=== PATIENT | female | born 1955 | race Caucasian/White ===

== ENCOUNTER 2017-02-21 20:12 | Inpatient (IN) | payer MEDICARE, BC ==
--- NOTE | ~2017-02-21 | CR72 ---
[facility] A Service of [facility] & [facility] RADIOLOGY TEXT RESULTS PATIENT: MIRNA WITT LOCATION: [place] [address] : 55 UNIT #: [id number] AGE: [address]: Andrew Stark MD SEX: F ORDER DR: [id number] [facility] [address] [facility]. [place], [place] [address] [id number] I MR#: [id number] Acc #: [id number] NAME: MIRNA WITT : 1955 SEX: F STUDY DATE/TIME: 02/23/2017 00:48 UNIT: [facility] ROOM: [facility] STUDY DESCRIPTION: CR Chest Single View Portable Attending Physician: Andrew Stark M.D. Ordering Physician: Blade Phillips M.D. Primary Care Physician: Kyle Carpenter M.D. MEDICAL IMAGING REPORT This report is preliminary unless electronic signature is present EXAM Portable chest 02/23/2017 at 0048 hours INDICATION Endotracheal tube and line placement. FINDINGS AP portable chest compared with 02/21/2017. The tip of an endotracheal tube is minimally below the thoracic inlet about 7-8 cm above the shanel. Consider advancing the tube 2-3 cm. Right IJ line is in the SVC. Heart size stable. There is some minimal atelectasis in the right base. No visible pneumothorax. Dictated by... Blade Nieves Jr., M.D. THIS IS AN ELECTRONICALLY VERIFIED REPORT Blade Nieves Jr., M.D. at 02/23/2017 11:15 AM TIP/alejandrina TD: 02/23/2017 08:05 JOB #: [id number] MEDICAL IMAGING REPORT Page 1 of 1 COPY
--- NOTE | ~2017-02-21 | CT90 ---
[facility] A Service of [facility] & [facility] RADIOLOGY TEXT RESULTS PATIENT: MIRNA WITT LOCATION: [address] : 55 UNIT #: [id number] AGE: [address]: Andrew Stark MD SEX: F ORDER DR: [id number] [facility] [address] [facility]. [place], [place] [address] [id number] I MR#: [id number] Acc #: [id number] NAME: MIRNA WITT. : 1955 SEX: F STUDY DATE/TIME: 02/27/2017 22:30 UNIT: [facility] ROOM: [facility] STUDY DESCRIPTION: CT Lower Ext Lt W Cont Attending Physician: Andrew Stark M.D. Ordering Physician: Andrew Stark M.D. Primary Care Physician: Kyle Carpenter M.D. MEDICAL IMAGING REPORT This report is preliminary unless electronic signature is present EXAM CT left foot with contrast 02/27/2017 HISTORY 61-year-old female with sepsis and confusion for 5 days. Open wound left foot. Left foot swelling. MRSA. Order requests evaluation for possible abscess or osteomyelitis. COMPARISON CT left leg 02/26/2017. Left foot x-rays 02/21/2017. TECHNIQUE Helical scan performed through the left foot following administration of IV contrast. Coronal and sagittal reformatted images. This CT exam was performed with one or more of the following radiation dose reduction techniques: automatic control, adjustment of mA and/or kV according to patient size, and iterative reconstruction. FINDINGS There is moderate generalized subcutaneous soft tissue edema throughout the visualized hind foot and extending along the medial aspect of the midfoot and forefoot. There is some soft tissue irregularity along the medial aspect of the midfoot which may correspond to the "open wound". No drainable soft tissue fluid collections are identified. No bony destructive changes to suggest osteomyelitis by CT. No significant joint effusions. There is a large bone infarction in the distal tibia. Generalized fatty atrophy intrinsic musculature of the foot suggests chronic neuropathic change. Flexor and extensor tendons appear grossly unremarkable. IMPRESSION 1. Moderate generalized subcutaneous soft tissue edema throughout the visualized hind foot and more confluent along the medial aspect of STS. [facility] A Service of [facility] & [facility] RADIOLOGY TEXT RESULTS PATIENT: MIRNA WITT LOCATION: [facility]ICCU2-09 : 55 UNIT #: [id number] AGE: [address]: Andrew Stark MD SEX: F ORDER DR: the midfoot and forefoot. This is most consistent with diffuse soft tissue cellulitis given the provided clinical history. No drainable soft tissue fluid collections identified. 2. No bony destructive changes to suggest osteomyelitis. No significant joint effusions. 3. 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 4. Generalized fatty atrophy intrinsic musculature of the foot suggesting sequelae of chronic neuropathic change. 5. Preliminary wet read provided by Dr. oJse No at the completion of examination. Dictated by... Yared Heredia M.D. THIS IS AN ELECTRONICALLY VERIFIED REPORT Yared Heredia M.D. at 03/01/2017 8:12 AM AXEL/nae TD: 03/01/2017 00:34 JOB #: [id number] MEDICAL IMAGING REPORT Page 1 of 1 COPY
--- NOTE | ~2017-02-21 | OR ---
Unit #: [id number] #: [id number] Patient: MIRNA WITT [id number] [address] [place], [place] [address] [id number] I MR#: [id number] NAME: MIRNA WITT. ROOM: [facility] Date of Procedure: 02/23/2017 Admission Date: 02/21/2017 Surgeon: Blade Phillips M.D. : 1955 Attending Physician: Andrew Stark M.D. Primary Care Physician: Kyle Carpenter M.D. OPERATIVE REPORT PREOPERATIVE DIAGNOSIS Sepsis. Rule out fasciitis. POSTOPERATIVE DIAGNOSIS Cellulitis. PROCEDURE PERFORMED Left lower extremity evaluation and exploration under anesthesia, central line placement by Anesthesia. ANESTHESIA General endotracheal anesthesia. ESTIMATED BLOOD LOSS 30 mL. INDICATIONS FOR PROCEDURE Ms. Witt is a 61-year-old poorly-controlled diabetic, who presented to the hospital with altered mental status and sepsis. Despite antibiotics of vancomycin, tobramycin, and Zosyn, she was remaining febrile, her white blood cell count was increasing, and she had a bandemia. Also on physical examination, she had ascending cellulitis from the foot circumferentially to the knee and then medially up to the inguinal ligament. There was no crepitus, but from previous markings on the leg despite antibiotics she was having ascending erythema, warmth, and pain. She was very agitated and so examination was difficult. DESCRIPTION OF PROCEDURE After obtaining consent from the family, she was transported to the operating room, and she was remained agitated and combative and Anesthesia initially tried to sedate her some IV medication, but we discovered that her IV was infiltrated and she had a large amount of infiltrated fluid into the left upper extremity. Inhalation sedation was used and so a new IV could be started and then she underwent general endotracheal anesthesia. She was transferred to the operating room table and because of the infiltration and poor IV access, I do not know if she received or got an adequate amounts of antibiotics that have been ordered. While central line placement was being performed by the Anesthesia Service, I could examine her leg more closely and again she had ascending cellulitis, but no crepitus. She has a chronic open wound on the foot from her neuropathy and Charcot joint and she has had previous fasciitis in the past. For this reason, she was prepped and draped in usual sterile Unit #: [id number] #: [id number] Patient: MIRNA WITT. There was no necrotic tissue on the foot that needed debridement and I could not express any purulent drainage. In the medial aspect of the leg, a vertical incision made. I dissected down through the soft tissue, inspected the fascia and then opened the fascia and inspected the muscle. There was no myonecrosis or deep space abscess. There was no necrotic fascia. I irrigated and obtained hemostasis, packed the wound with Kerlix soaked in Betadine and then placed a dry sterile dressing over the foot and lower leg. After evaluating the patient, I think that the patient just had progressive cellulitis that probably was not being treated because of infiltration of the IV, and I think her IV infiltrated because the patient was so combative and difficult for the nursing staff to manage. Central line has been placed, so that we have adequate IV access and I will order adequate sedation and pain medication, so that she might be able to be better maintained. I aborted tobramycin and vancomycin levels and called the pharmacy staff to review those levels and re-dose her as appropriate given the fact that she probably has not had adequate dosing because of the infiltration. We will restart her Zosyn in the recovery room. Dictated by... Jostin Rolon/kathia TD: 02/23/2017 02:14 JOB #: [id number] OPERATIVE REPORT Page 1 of 1 X Blade Phillips MD X PROCEDURE OPERATIVE NOTE
--- NOTE | ~2017-02-21 | CR72 ---
[facility] A Service of [facility] / [facility] RADIOLOGY TEXT RESULTS PATIENT: MIRNA WITT LOCATION: [place] [address] : 55 UNIT #: [id number] AGE: [address]: Andrew Stark MD SEX: F ORDER DR: [id number] [facility] [address] [facility]. [place], [place] [address] [id number] I MR#: [id number] Acc #: [id number] NAME: MIRNA WITT. : 1955 SEX: F STUDY DATE/TIME: 02/26/2017 5:49 UNIT: [facility] ROOM: [facility] STUDY DESCRIPTION: CR Chest Single View Portable Attending Physician: Andrew Stark M.D. Ordering Physician: Pauly Castellanos M.D. Primary Care Physician: Kyle Carpenter M.D. MEDICAL IMAGING REPORT This report is preliminary unless electronic signature is present EXAM AP portable chest 02/26/2017 HISTORY Respiratory failure. Patient on ventilator. Follow up cardiopulmonary status. Fever, shortness of air. TECHNIQUE AP portable chest x-ray. FINDINGS The exam shows no significant change since yesterday. Endotracheal tube tip remains positioned high within the thoracic trachea about 7.9 cm above the shanel at the thoracic inlet. Right IJ central line remains in good position. Lungs are clear. Heart size and pulmonary vascularity are normal. Improved mild bibasilar atelectasis. IMPRESSION 1. Stable portable chest radiograph, unchanged since yesterday. 2. High position of the endotracheal tube as noted above. STAT * RESULT Dictated by... Som Solorio M.D. THIS IS AN ELECTRONICALLY VERIFIED REPORT Som Solorio M.D. at 02/26/2017 1:31 PM RGW/iveths [facility] A Service of [facility] / [facility] RADIOLOGY TEXT RESULTS PATIENT: MINRA WITT LOCATION: [address] : 55 UNIT #: [id number] AGE: [address]: Andrew Stark MD SEX: F ORDER DR: TD: 02/26/2017 06:23 JOB #: [id number] MEDICAL IMAGING REPORT Page 1 of 1 COPY
--- NOTE | ~2017-02-21 | CR126 ---
[facility] A Service of [facility] RADIOLOGY TEXT RESULTS PATIENT: MIRNA WITT LOCATION: [facility] 315-01 : 55 UNIT #: [id number] AGE: [address]: Andrew Stark MD SEX: F ORDER DR: [id number] [facility] [address] [facility]. [place], [place] [address] [id number] I MR#: [id number] Acc #: [id number] NAME: MIRNA WITT. : 1955 SEX: F STUDY DATE/TIME: 02/21/2017 20:18 UNIT: [facility] ROOM: [id number] STUDY DESCRIPTION: CR Foot Complete Min 3 View Lt Attending Physician: Deandre Kwan M.D. Ordering Physician: Stewart Del Rosario M.D. Primary Care Physician: Kyle Carpenter M.D. MEDICAL IMAGING REPORT This report is preliminary unless electronic signature is present EXAM Left foot 3 views HISTORY Severe soft tissue breakdown in left foot today. Foot pain. FINDINGS 3 views left foot demonstrate chronic bone infarct in the distal tibia extending to the distal metaphysis as noted on prior x-ray and MRI studies. Old healed fracture deformity distal metaphysis fifth metatarsal. Soft tissue swelling medial foot and extending to the base of the great toe. Mild generalized demineralization. No acute fracture or bony destruction. IMPRESSION 1. No acute finding. 2. Soft tissue swelling medial foot extending to the base of great toe. 3. Generalized demineralization. 4. Chronic bone infarct distal tibia. 5. Old healed fracture distal metaphysis fifth metatarsal. Dictated by... Diogenes Smith M.D. THIS IS AN ELECTRONICALLY VERIFIED REPORT Diogenes Smith M.D. at 02/22/2017 9:11 AM DFL/rnr TD: 02/21/2017 23:34 JOB #: [id number] MEDICAL IMAGING REPORT [facility] A Service [facility] RADIOLOGY TEXT RESULTS PATIENT: MIRNA WITT LOCATION: [facility] 315-01 : 55 UNIT #: [id number] AGE: [address]: Andrew Stark MD SEX: F ORDER DR: Page 1 of 1 COPY
--- NOTE | ~2017-02-21 | A ---
[facility] Nutrition Therapy DATE: 02/23/17 Patient: MIRNA WITT Physician: MAGNUS Address: [address] [place] [address] Room/Bed: [address], Zip: [place] [address] Admit Date: 02/21/17 Date of : 55 Height: 5 5 Weight: 216 98 NUTRITIONAL ASSESSMENT: REASON: NPO IN ICU ASSESSMENT PT IS 61 Y.O. FEMALE ADMITTED FOR SEPSIS, AMS, FEVER, UTI, ?PNA PMH: DEMENTIA, POORLY-CONTROLLED DM, DIABETIC NEUROPATHY, HTN, HLD, COPD, PNA, OPIATE OD Anthropometrics: 5'5", WT: 210# (BEDSIDE) (95 KG), BMI: 34.9, 168%IBW Labs: GLU: 126, CA+:7.1, ALB: 2.3, M.4, A1c: 8.7 Meds: PROPOFOL, PROTONIX, NACL, ZOFRAN, KCL I/O & Bowel function: 3010/2832, 7 BMs NOTED Skin Integrity: (L) LEG CELLULITIS NOTED; (L) FOOT WOUND EDEMA: BILATERAL FEET GENERALIZED EDEMA; LLE 1+ EDEMA Estimated Nutrition Needs: 0145-7738 KCAL (20-25 KCAL/KG BW) 95-114 G PRO (1.0-1.2 G PRO/KG BW) FLUIDS CONSISTENT W/KCAL NEEDS OR MANAGE PER MD Assessment: CHART REVIEWED AND EVENTS NOTED. PT SEEN FOR NPO IN ICU ASSESSMENT. PT CURRENTLY INTUBATED AND SEDATED (PROPOFOL AT RATE OF 17.6 ML/HR PROVIDING ~465 KCAL FROM LIPIDS). AT TIME OF VISIT. NO CURRENT PLANS IN PLACE FOR ALTERNATIVE NUTRITION SUPPORT AT THIS TIME. OF NOTE, PT IS S/P DEBRIDEMENT (L) LEG. PT WAS PLACED ON CC DIET PRIOR TO INTUBATION. NO FAMILY IN ROOM AT THIS TIME. RD TO FOLLOW. SEE RECOMMENDATIONS BELOW. Dx: INADEQUATE PROTEIN-ENERGY INTAKE R/T CURRENT CLINICAL CONDITION, DX AEB NPO STATUS, PT INTUBATED AND SEDATED. Intervention: 1. NPO Monitoring, Evaluation and Goals: 1. ENTERAL NUTRITION; PROVIDE ~80-100% ESTIMATED NUTRIENT NEEDS 2. PO INTAKE; ADVANCE DIET TOLERATED W/NO C/O N/V/D (PO>50%) 3. SKIN; PROMOTE SKIN HEALING MONITOR: -WEIGHTS -PLANS FOR SUPPORT [facility] Nutrition Therapy DATE: 02/23/17 Patient: MIRNA Isaacs EDUAR Physician: MAGNUS Address: [address] [place] [address] Room/Bed: [address], Zip: [place] [address] Admit Date: 02/21/17 Date of : 55 Height: 5 5 Weight: 216 98 -SEDATION RATE -EXTUBATION? Recommendations: 1. ONCE MEDICALLY FEASIBLE AND PT EXTUBATED, ADVANCE DIET PER OPERATING ENGINEER + CC DIET 2. IF PT REMAINS INTUBATED FOR >24 HOURS, CONSIDER PLACING DHT AND BEGIN ALTERNATIVE NUTRITION SUPPORT OF GLUCERNA 1.5 @ 20 ML/HR, ADVANCE 10 ML q 6 HOURS TO GOAL RATE OF 45 ML/HR + SEDATION + SUGAR-FREE PROSTAT BID -PROVIDES 2285 KCAL, 119 G PRO, 821 ML FREE H20 3. ONCE PROPOFOL D/C'D, RECOMMEND ALTERNATIVE NUTRITION SUPPORT OF GLUCERNA 1.5 @ 20 ML/HR, ADVANCE 10 ML q 6 HOURS TO GOAL RATE OF 60 ML/HR -PROVIDES 2160 KCAL, 118 G PRO, 1094 ML FREE H20 ADD FREE H20 FLUSHES PER RD WILL F/U PER PROTOCOL PT IS SEVERELY COMPROMISED Respectfully, BILLY CARDOZO MS, RD, LD Food and Nutritional Services [facility] cc: client file
--- NOTE | ~2017-02-21 | HP ---
Unit #: [id number] #: [id number] Patient: MIRNA WITT [id number] [address] [place], [place] [address] [id number] I MR#: [id number] NAME: MIRNA WITT. ROOM: [facility] Age: 61 Sex: F Admission Date: 02/21/2017 : 1955 Attending Physician: Andrew Stark M.D. Primary Care Physician: Kyle Carpenter M.D. HISTORY AND PHYSICAL HISTORY AND EXAM Ms. Witt is a 61-year-old female who was admitted to the medical service because of altered mental status and fever. She was noted to have cellulitis of the left lower extremity but plain film was generally unremarkable. She does have a past history of necrotizing fasciitis of the left foot that was debrided by the orthopedic service in 08/2016 and recently in November 2016 she underwent full thickness skin grafting. The wound was broken down but there is no purulent drainage and no necrotic tissue but she does have cellulitis extending from the foot, all the way up to the knee and ten immediately up to the inguinal ligament. It is exquisitely tender but there is no crepitus. Blood cultures have grown out 2 out of 2 bottles of g positive cocci and chains. Her initial lactic acid was elevated, but since the initiation of antibiotics it has normalized but the patient continues to have altered mental status and agitation. Despite antibiotics her white count has increased from 31,000 to 36,000 and she has 16% bands. PAST MEDICAL HISTORY COPD, dementia, diabetes poorly controlled with peripheral neuropathy and Charcot joint, chronic pain syndrome, hyperlipidemia, previous foot surgery as described, hysterectomy. ALLERGIES Amoxicillin. HOME MEDICATIONS Neurontin, Requip, potassium, Toprol XL, Aricept, Neurontin, Levemir, NovoLog, metformin, and simvastatin. FAMILY HISTORY Diabetes, breast cancer, hypertension. SOCIAL HISTORY Long-term smoker, denies the use of alcohol or recreational drugs. She lives at home with her daughter who is at the bedside. REVIEW OF SYSTEMS Unobtainable. The daughter just says she has had progressive agitation and decline in mental status over the last several days at home. CURRENT EXAMINATION VITAL SIGNS: Temperature is 101.6, heart rate is 106, respirations 20, blood pressure 138/82. GENERAL: She is awake, alert but confused and very agitated. Unit #: [id number] #: [id number] Patient: MIRNA WITT HEENT: Unremarkable. CARDIAC: Regular rhythm but tachycardic. LUNGS: Clear anteriorly with shallow respirations. ABDOMEN: Soft and nontender. EXTREMITIES: Right lower extremity is unremarkable. Upper extremities are unremarkable. Left lower extremity as described with an open wound on the foot with ascending cellulitis, again no crepitus and no purulent drainage from the foot. Previews of the foot show a chronic bone infarction, soft tissue swelling, old healed fracture but no air in the soft tissues. DIAGNOSTIC STUDIES LABORATORY STUDIES: Basic metabolic panel is unremarkable. INR is 1.0, white count 36,416 bands, hemoglobin 13.4. Urinalysis - 10-25 white cells, urine culture is pending. ASSESSMENT AND PLAN Patient with sepsis with ascending cellulitis of the left leg from the foot, up to the knee circumferentially and then medially along the thigh up to the inguinal ligament. Although there is no crepitus and no purulent drainage, she does have positive blood cultures with Gram-positive cocci and chains and bandemia with worsening leukocytosis despite vancomycin and Zosyn. I discussed the situation with the daughter and stated since she appears to be septic and worsening and because of the findings discussed already, that going to the operating room and exploring the leg to rule out fasciitis and mild necrosis is recommended. I spoke with Dr. Thorne her orthopedic surgeon on the phone, who agrees that she may have recurrent fascitis but does not feel this is bone related as he has recently seen her in the office. Dictated by Jostin Rolon/amanda TD: 02/23/2017 05:06 JOB #: [id number] HISTORY AND PHYSICAL Page 1 of 1 X Blade Phillips MD HISTORY AND PHYSICAL
--- NOTE | ~2017-02-21 | CR7 ---
[facility] A Service of [facility] & [facility] RADIOLOGY TEXT RESULTS PATIENT: MIRNA WITT LOCATION: [address] : 55 UNIT #: [id number] AGE: [address]: Andrew Stark MD SEX: F ORDER DR: [id number] [facility] [address] [facility]. [place], [place] [address] [id number] I MR#: [id number] Acc #: [id number] NAME: MIRNA WITT. : 1955 SEX: F STUDY DATE/TIME: 02/24/2017 12:37 UNIT: [facility] ROOM: [facility] STUDY DESCRIPTION: CR Abdomen Single AP View Attending Physician: Andrew Stark M.D. Ordering Physician: Pauly Castellanos M.D. Primary Care Physician: Kyle Carpenter M.D. MEDICAL IMAGING REPORT This report is preliminary unless electronic signature is present EXAM Abdomen HISTORY Dobbhoff tube placement FINDINGS A portable view of the abdomen was obtained. The Dobbhoff tube has its tip in the antrum of the stomach. The bowel gas pattern is normal. IMPRESSION The tip of the Dobbhoff tube is in the antrum of the stomach. Dictated by... Jose No M.D. THIS IS AN ELECTRONICALLY VERIFIED REPORT Jose No M.D. at 02/25/2017 8:06 AM FEL/to TD: 02/24/2017 18:23 JOB #: [id number] MEDICAL IMAGING REPORT Page 1 of 1 COPY
--- NOTE | ~2017-02-21 | FU ---
[facility] Nutrition Therapy DATE: 02/26/17 Patient: MIRNA WITT Physician: MAGNUS Address: [address] [place] [address] Room/Bed: [address], Zip: [place] [address] Admit Date: 02/21/17 Date of : 55 Height: 5 5 Weight: 224 102 NUTRITION MONITORING/FOLLOW-UP: Reason: PT SEEN FOR FOLLOW-UP/ENTERAL NUTRITION SUPPORT DX: SEPSIS, FEVER, UTI, ?PNA Anthropometrics: 5'5", WT: 224# (102 KG), BMI: 37.3 -ADMIT WEIGHT: 209#-FLUID RETENTION? Labs: GLU: 260, CA+:7.9, ALB: 2.2 Meds: SOLU-MEDROL, NOVOLOG, FENTANYL, NACL, ZOFRAN, PROTONIX I&O's: 8841/0407 Skin: (L) FOOT WOUND (PREVIOUSLY NOTED) EDEMA: LLE 1+/CELLULITIS NOTED; (R) FOOT TRACE EDEMA; ABD GENERALIZED EDEMA Estimated Nutrition Needs: 7075-3231 KCAL 95-114 G PRO Assessment: CHART REVIEWED AND EVENTS NOTED. PT SEEN FOR ENTERAL NUTRITION SUPPORT FOLLOW-UP. PT CONTINUES TO BE INTUBATED AND SEDATED AT TIME OF VISIT RECEIVING ALTERNATIVE NUTRITION SUPPORT OF GLUCERNA 1.5 @ 45 ML/HR + SUGAR-FREE PROSTAT BID. PER RN AND CHART, PT TOLERATING EN, NOTING NO ISSUES. PER PUMP HISTORY, PT RECEIVING ~93% ESTIMATED NEEDS PAST [address] TO ATTEMPT TO WEAN PT OFF VENT, PT ANXIOUS AND RESTLESS PER RN. NO FAMILY IN ROOM AT THIS TIME. RD TO CONTINUE TO FOLLOW. -TUBE FEEDS PROVIDE 1820 KCAL, 119 G PRO, 821 ML FREE H20 Dx: INADEQUATE PROTEIN-ENERGY INTAKE R/T CURRENT CLINICAL CONDITION, DX AEB NPO STATUS, PT INTUBATED AND SEDATED-ACTIVE, RESOLVED INADEQUATE PROTEIN-ENERGY INTAKE R/T CURRENT CLINICAL CONDITION, DX AEB PT RECEIVING ALTERNATIVE NUTRITION SUPPORT, PT INTUBATED AND SEDATED. Intervention: 1. ENTERAL NUTRITION SUPPORT Monitoring, Evaluation and Goals: GOALS NOT MET 1. ENTERAL NUTRITION; PROVIDE ~80-100% ESTIMATED NUTRIENT NEEDS AT GOAL RATE 2. ORAL INTAKE; ADVANCE DIET PER INSTRUMENTATION CHEMIST W/NO C/O N/V/D (PO>50%) 3. GI; PROMOTE REGULAR GI FUNCTION 4. LABS; WNL: GLU [facility] Nutrition Therapy DATE: 02/26/17 Patient: MIRNA WITT Physician: MAGNUS Address: [address] [place] [address] Room/Bed: [address], Zip: [place] [address] Admit Date: 02/21/17 Date of : 55 Height: 5 5 Weight: 224 102 MONITOR: -TF RATE/RESIDUALS -WEIGHTS -EXTUBATION? -LABS Recommendations: 1. RECOMMEND TO ADVANCE CURRENT ENTERAL NUTRITION SUPPORT OF GLUCERNA 1.5 TO GOAL RATE OF 60 ML/HR -PROVIDES 2160 KCAL, 119 G PRO, 1094 ML FREE H20 CONTINUE FREE H20 FLUSHES PER MD 2. ONCE MEDICALLY FEASIBLE AND PT EXTUBATED, ADVANCE DIET PER INSTRUMENTATION CHEMIST + CC RD WILL F/U PER PROTOCOL PT IS MOD/SEVERELY COMPROMISED Respectfully, BILLY CARDOZO MS, RD, LD Food and Nutritional Services [facility] cc: client file
--- NOTE | ~2017-02-21 | FU ---
[facility] DATE: 03/02/17 Patient: MIRNA WITT Physician: MORCAR Address: [address] [place] [address] Room/Bed: [address] [place] [address], Zip: [place] [address] Admit Date: 02/21/17 Date of : 55 Height: 5 5 Weight: 218 99 NUTRITION MONITORING/FOLLOW-UP: Reason: PT SEEN FOR FOLLOW-UP DX: SEPSIS, AMS, FEVER, UTI, ?PNA Anthropometrics: 5'5", WT: 218# (99 KG), BMI: 36.3 -ADMIT WEIGHT: 209# Labs: GLU: 175, K+:3.2, ALB: 2.9 Meds: NACL, PREDNISONE, PROTONIX, LEVEMIR, NOVOLOG, ZOFRAN I&O's: 2979/3056, 4 BMs NOTED Skin: ISSUES PREVIOUSLY NOTED EDEMA: LLE 1+/CELLULITIS; (R) FOOT TRACE EDEMA; ABD GENERALIZED EDEMA Estimated Nutrition Needs: N/A Assessment: CHART REVIEWED AND EVENTS NOTED. PT SEEN FOR FOLLOW-UP. PT TRANSFERRED TO [facility] FROM ICU. PT REPORTS APPETITE SLOWLY IMPROVING, NOTING NO C/O N/V/D. PT REPORTS EATING FOUNTAIN FOR BREAKFAST AND SALAD FOR LUNCH. THIS RD ENCOURAGED SLOW GRADUAL PO INTAKE AND SUPPLEMENT INTAKE FOR WOUND HEALING , PT AGREED TO GLUCERNA SHAKES BID. PT REPORTED NO DIET QUESTIONS AT THIS TIME. RD TO FOLLOW. Dx: INADEQUATE PROTEIN-ENERGY INTAKE R/T DX, CURRENT CONDITION AEB NEED FOR EN, PT IS INTUBATED AND SEDATED.-RESOLVED (PT ON PO DIET, NOT ON VENT). NEW DX: INADEQUATE NUTRIENT INTKE R/T DECREASED APPETITE, CURRENT CONDITION AEB PT REPORT ABOVE. Intervention: 1. CC DIET 2. GLUCERNA SHAKES BID Monitoring, Evaluation and Goals: GOALS NOT MET 1. ORAL INTAKE; CONSUME >50% OF MEALS AND SUPPLEMENTS W/NO C/O N/V/D 2. LABS; WNL: K+ 3. GI; PROMOTE REGULAR GI FUNCTION 4. SKIN; PROMOTE WOUND HEALING MONITOR: -PO INTAKE/APPETITE -SUPPLEMENT INTAKE [facility] DATE: 03/02/17 Patient: MIRNA WITT Physician: MAGNUS Address: [address] [place] [address] Room/Bed: [address] [place] [address], Zip: [place] [address] Admit Date: 02/21/17 Date of : 55 Height: 5 5 Weight: 218 99 -LABS Recommendations: 1. ORDER TRACY GLUCERNA SHAKES BID W/MEALS 2. APPRECIATE FAMILY AND STAFF TO ENCOURAGE ADEQUATE KCAL AND PROTEIN INTAKE 3. ADD MVI W/MINERAL + 100-200 MG VITAMIN C TO PROMOTE WOUND HEALING RD WILL F/U PER PROTOCOL PT IS MILDLY COMPROMISED Respectfully, BILLY CARDOZO MS, RD, LD [facility] cc: client file
--- NOTE | ~2017-02-21 | CR72 ---
[facility] A Service of [facility] RADIOLOGY TEXT RESULTS PATIENT: MIRNA WITT LOCATION: [place] [address] : 55 UNIT #: [id number] AGE: [address]: Andrew Stark MD SEX: F ORDER DR: [id number] [facility] [address] [facility]. [place], [place] [address] [id number] I MR#: [id number] Acc #: [id number] NAME: MIRNA WITT. : 1955 SEX: F STUDY DATE/TIME: 02/28/2017 5:15 UNIT: [facility] ROOM: [facility] STUDY DESCRIPTION: CR Chest Single View Portable Attending Physician: Andrew Stark M.D. Ordering Physician: Pauly Castellanos M.D. Primary Care Physician: Kyle Caprenter M.D. MEDICAL IMAGING REPORT This report is preliminary unless electronic signature is present EXAM Portable chest 02/28/2017 HISTORY Respiratory failure and shortness of air for 7 days. Comparison chest 02/26/2017. FINDINGS Frontal chest demonstrates tubes and lines in stable position. No pneumothorax. Lungs clear. Heart size and mediastinum are stable. IMPRESSION 1. Tubes and lines stable. No pneumothorax. 2. No other acute chest findings. No change from 02/26/2017 Dictated by... Yared Heredia M.D. THIS IS AN ELECTRONICALLY VERIFIED REPORT Yared Heredia M.D. at 03/01/2017 8:11 AM AXEL/nae TD: 03/01/2017 00:15 JOB #: [id number] MEDICAL IMAGING REPORT Page 1 of 1 COPY
--- NOTE | ~2017-02-21 | EKG ---
PATIENT: MIRNA WITT UNIT #: [id number] Ventricular Rate: 113 BPM Atrial Rate: 113 BPM P-R Interval: 124 ms QRS Duration: 80 ms Q-T Interval: 288 ms QTC Calculation(Bezet): 395 ms P [place]: 64 degrees Calculated R [place]: -50 degrees Calculated T [place]: 76 degrees Diagnosis Line: Sinus tachycardia with Premature atrial complexes Diagnosis Line: Possible Left atrial enlargement Diagnosis Line: Left axis deviation Diagnosis Line: Left ventricular hypertrophy with repolarization Diagnosis Line: abnormality Diagnosis Line: Cannot rule out Septal infarct (cited on or before Diagnosis Line: 18-NOV-2016) Diagnosis Line: Abnormal ECG Diagnosis Line: When compared with ECG of 18-NOV-2016 10:17, Diagnosis Line: Premature atrial complexes are now Present Diagnosis Line: Confirmed by ANGELICA PETERS MD ([id number]) on 02/22/2017 Diagnosis Line: 4:40:20 PM INTERPRETING MD: FRAN CA
--- NOTE | ~2017-02-21 | CT72 ---
[facility] A Service of [facility] RADIOLOGY TEXT RESULTS PATIENT: MIRNA WITT LOCATION: [address] : [birth year] UNIT #: [id number] AGE: [address]: Andrew Stark MD SEX: F ORDER DR: [id number] [place] [id number] [place], [place] [address] [id number] I MR#: [id number] Acc #: [id number] NAME: MIRNA WITT. : 1955 SEX: F STUDY DATE/TIME: 02/21/2017 19:47 UNIT: [facility] ROOM: [facility] STUDY DESCRIPTION: CT Head Wo Contrast Stroke Attending Physician: Andrew Stark M.D. Ordering Physician: Ran Weber M.D. Primary Care Physician: Kyle Carpenter M.D. MEDICAL IMAGING REPORT This report is preliminary unless electronic signature is present EXAM CT head without contrast INDICATIONS Slurred speech, which started on February 21, 2017. Patient also had a fever of 103.6. The scan was performed on February 21, 2017 but was non-diagnostic due to significant motion artifact. TECHNIQUE Axial CT images were obtained from the vertex of the skull through skull base. No intravenous contrast administered. This CT exam was performed with one or more of the following radiation dose reduction techniques: automatic exposure control, adjustment of mA and/or kV according to patient size, and iterative reconstruction. FINDINGS Examination is severely degraded by motion artifact. I see no obvious acute intracranial hemorrhage. There is no midline shift or mass effect. Visualized paranasal sinuses and mastoid air cells appear clear. No focal soft tissue abnormalities are seen. IMPRESSION Severely limited examination due to motion artifact. The patient was scanned 2 times in an effort to obtain diagnostic quality studies. I do not see any obvious acute intracranial hemorrhage. Dictated by... Luzmaria Ann M.D. [facility] A Service [facility] RADIOLOGY TEXT RESULTS PATIENT: MIRNA WITT LOCATION: [address] : [birth year] UNIT #: [id number] AGE: [address]: Andrew Stark MD SEX: F ORDER DR: THIS IS AN ELECTRONICALLY VERIFIED REPORT Luzmaria Ann M.D. at 02/24/2017 9:08 AM AFF/pcl TD: 02/23/2017 20:28 JOB #: [id number] MEDICAL IMAGING REPORT Page 1 of 1 COPY
--- NOTE | ~2017-02-21 | CO ---
Unit #: [id number] #: [id number] Patient: MIRNA WITT [id number] [address] [address] [id number] I MR#: [id number] NAME: MIRNA WITT ROOM: [facility] Age: 61 Sex: F Admission Date: 02/21/2017 : 1955 Attending Physician: Andrew Stark M.D. Primary Care Physician: Kyle Carpenter M.D. Consultation Date: 02/23/2017 CONSULTATION REPORT REASON FOR CONSULTATION Antibiotic management in patient with sepsis. HISTORY OF PRESENT ILLNESS This is a 61-year-old female who is currently on the ventilator and unable to provide any medical history. The patient's chart has been reviewed and discussed with the ICU staff. The patient was admitted for altered mental status and fever, found to have cellulitis of the left lower extremity that was progressively getting worse despite a nonsignificant plain film. The patient has a history of necrotizing fasciitis and she was taken by the surgery team to the OR to evaluate for necrotizing fasciitis. However, per report, there is no necrotic tissue found. Per the H and P, it appears that she underwent a skin grafting in November 2016 for a full thickness wound. The patient's wound, however, is open. There is no significant drainage at this time. The patient currently remains on the ventilator. Her fever is subsiding. Her leukocytosis is improving and her blood culture showed two of two group G Strep. The patient has been placed on tobramycin, vancomycin and Zosyn. ID was asked to evaluate for further management. PAST MEDICAL HISTORY Includes: 1. COPD. 2. Dementia. 3. Diabetes with peripheral neuropathy. 4. Charcot joint. 5. Chronic pain syndrome. 6. Hyperlipidemia. 7. Previous foot surgery. 8. Hysterectomy. ALLERGIES Amoxicillin. However, it appears that patient is tolerating Zosyn without difficulty. MEDICATIONS Vanc, Zosyn and tobramycin. For other medications, please refer to patient's MAR. She is not on any pressors but she is on a Diprivan drip. SOCIAL HISTORY Positive tobacco per the chart. No alcohol or drug use. She lives with others. REVIEW OF SYSTEMS Unit #: [id number] #: [id number] Patient: MIRNA WITT Unable to obtain as patient is currently on the ventilator. PHYSICAL EXAMINATION VITAL SIGNS: Temperature is 97.6 with a T-max of 103.6l. Pulse is 76, blood pressure 85/43 and respiratory rate is 13. GENERAL: This is a no apparent distress female who is currently resting on the ventilator. HEENT/NECK: Her pupils are equal. Her neck is supple. CARDIOVASCULAR: S1, S2. Regular rate and rhythm. PULMONARY: Clear to auscultation with scarce rhonchi noted on 60% FIO2. ABDOMEN: Positive bowel sounds and soft. No organomegaly appreciated. EXTREMITIES: Left lower extremity clean, left medial calf incision. There is also a foot wound that appears to be Charcot wound with some open ulcer without significant drainage noted at this time. She has an IJ line in place. DIAGNOSTIC STUDIES LABORATORY: BUN 14, creatinine 0.9, sodium 142, potassium 3.8, chloride 110, CO2 22, bilirubin 0.5, AST 24, ALT is 15. CRP is 34.4. WBC 25.2 which is improved from 36,000. Hemoglobin 11, hematocrit 37.1, platelets 302. Sed rate 62. Strep screen is positive on 02/22. Influenzae screen is negative. Urinalysis shows 10-25 WBCs with negative nitrites, 1+ blood. Urine culture shows less than 10,000 colonies of contaminated growth. 02/21 blood cultures - two of two 15 minutes apart showed group G Strep. IMAGING: Interstitial prominence bilaterally. Mild interstitial pneumonia is not excluded. No dense consolidation seen. Foot film shows no acute findings. Soft tissue swelling in the medial foot to the base of the toe. IMPRESSION This is a 61-year-old female who is currently on the ventilator. The patient was admitted with fever and altered mental status, found to have group G Strep sepsis, secondary to left lower extremity cellulitis that was progressive from the foot wound. Patient without significant plain film findings but continued to decline clinically. This was thought to be potentially related to necrotizing fasciitis. However, operative report reports no necrotic tissue seen, it may have also been related to an infiltrated IV after discuss with the staff and patient not receiving adequate antibiotics. At this time, currently patient is post surgery. She remains on the ventilator. Her fever is subsiding. Her leukocytosis is improving. At this time, will continue to treat as group G Strep sepsis with Zosyn. Will DC tobramycin and hopefully plan to DC vancomycin in the next 24 hours pending ruling out any healthcare-associated pneumonia. Will check a sputum culture as patient does still remain on the ventilator but this may response to her COPD. Patient's foot will need to be further examined with an MRI or CT scan in the future. However, this can await until patient is more stable. It may all be related to an ulcer from her Charcot foot but will need to continue to follow closely. Unit #: [id number] #: [id number] Patient: MIRNA WITT Will repeat blood cultures x2 30 minutes apart. Will check routine blood work in the morning and will discuss with Dr. Walt Wilder. Thank you for allowing us to participate in the care of this patient and further recommendations to follow pending patient's clinical course. Dictated by... Soraida Gomes A.P.R.N. for Jostin Wilkinson/elmer TD: 02/23/2017 10:48 JOB #: [id number] CONSULTATION REPORT Page 1 of 1 X X CONSULTATION REPORT
--- NOTE | ~2017-02-21 | CR71 ---
[facility] A Service of [place] [facility] RADIOLOGY TEXT RESULTS PATIENT: MIRNA WITT LOCATION: [place] [address] : 55 UNIT #: [id number] AGE: [address]: Andrew Stark MD SEX: F ORDER DR: [id number] [facility] [address] [facility]. [place], [place] [address] [id number] MR#: [id number] Acc #: [id number] NAME: MIRNA WITT. : 1955 SEX: F STUDY DATE/TIME: 02/23/2017 6:06 UNIT: [facility] ROOM: [facility] STUDY DESCRIPTION: CR Chest Single View Attending Physician: Andrew Stark M.D. Ordering Physician: Herbert Martinez M.D. Primary Care Physician: Kyle Carpenter M.D. MEDICAL IMAGING REPORT This report is preliminary unless electronic signature is present EXAM AP portable chest DATE: 02/23/2017 06:06 HISTORY Sepsis, fever and confusion. Symptoms have present since 02/21/17 for two days. Cellulitis of the left lower extremity. Dementia, diabetes. COPD. Previous smoking history. Fever 103.6. COMPARISON AP portable chest 02/23/2017. CT chest PE protocol 12/03/2016. AP portable chest 12/03/2016. FINDINGS ET tube tip remains high-riding near the thoracic inlet about 7.6 cm above the shanel. It is similarly repositioned compared to the study earlier today. Right IJ central line remains in the [id number] SVC. No visible pneumothorax. Fine interstitial prominence is present within both lungs. No consolidation. Stable heart size. Benign calcified lymph nodes in the bilateral hilar regions. No acute osseous abnormalities. IMPRESSION 1. Very fine interstitial prominence in both lungs may represent changes of mild interstitial pneumonia in the proper clinical context; however, no dense consolidation is seen. There is probable mild atelectasis in the lung bases. 2. ET tube tip remains high-riding at the thoracic inlet about 7.6 cm above the shanel. Dictated by... [facility] A Service of [facility] RADIOLOGY TEXT RESULTS PATIENT: MIRNA WITT LOCATION: [address] : [birth year] UNIT #: [id number] AGE: [address]: Andrew Stark MD SEX: F ORDER DR: Lexus Bales M.D. THIS IS AN ELECTRONICALLY VERIFIED REPORT Lexus Bales M.D. at 02/24/2017 8:33 AM PHUONG/chari TD: 02/23/2017 10:00 JOB #: [id number] MEDICAL IMAGING REPORT Page 1 of 1 COPY
--- NOTE | ~2017-02-21 | CO ---
Unit #: [id number] #: [id number] Patient: MIRNA WITT [id number] [facility] [address] [facility]. [place], [place] [address] [id number] I MR#: [id number] NAME: MIRNA WITT. ROOM: 465 Age: 61 Sex: F Admission Date: 02/21/2017 : 1955 Attending Physician: Andrew Stark M.D. Primary Care Physician: Kyle Carpenter M.D. Consultation Date: 03/02/2017 CONSULTATION REPORT REASON FOR CONSULTATION Decision-making capacity, history of depression, dementia. HISTORY OF PRESENT ILLNESS Ms. Mirna Witt is a 61-year-old white female, seen in room 465, bed 1 on - at [facility] on 03/02/2017. The patient dressed casually, lying comfortably in a propped up position in bed, receiving oxygen through [employer]. The patient was able to give coherent history, reported that she was transferred from ICU. The patient was admitted due to altered mental status and fever. The patient reports that she is here due to her left lower extremity pain and infection and cellulitis. The patient reported that she has a history of depression and history of dementia, compliant with medication. The patient currently denied any suicidal or homicidal ideation. Denied any psychotic symptom. The patient did have some problem with memory, but overall cooperative. The patient lives at home with her daughter. The patient denied any psychotic symptom. The patient reported feeling sad, depressed, while she is in the hospital. PAST PSYCHIATRIC HISTORY Remarkable for history of dementia diagnosis. MEDICAL HISTORY AND MEDICATION HISTORY The patient currently on Neurontin, Requip, potassium, Toprol-XL, Aricept, Levemir, NovoLog, metformin, and simvastatin. The patient's medical history is remarkable for history of COPD, dementia, diabetes poorly controlled, neuropathy, Charcot joint, chronic pain syndrome, hyperlipidemia, previous foot surgery, and hysterectomy. FAMILY HISTORY AND SOCIAL HISTORY The patient has a good support system from daughter. No history of any abuse. No history of any substance abuse. REVIEW OF SYSTEMS Complete review of systems is unremarkable except anxiety. MENTAL STATUS EXAMINATION General appearance; the patient moderately obese, dressed casually in hospital attire, lying comfortably in bed, receiving oxygen through [employer]. Attention span and concentration, fair. Speech, regular rate. Oriented in time, place, and person. The patient was able to give approximate answers about month and year. Mood and affect were sad, dysphoric, and anxious. Thought process, coherent. Thought content, the patient denied any thoughts of harming self or others. Recent and remote Unit #: [id number] #: [id number] Patient: MIRNA WITT memory, fair. Noted some problems with immediate and recent memory. Language, fair. Fund of knowledge, fair. Insight and judgment, fair to slightly impaired. 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 Secondary diagnosis: Deferred. Medical diagnosis: Please refer to H and P. Stressors: Psychosocial stressors. ASSESSMENT AND PLAN 1. Supportive psychotherapy and psychoeducation provided to the patient. 2. Educated about benefits and side effects of medication and course and prognosis of illness. 3. Based on the current assessment and exam, the patient is able to make informed medical decisions at this time, although the patient has some problem with memory, history of dementia and currently on Aricept, but there is no impairment in decision-making capacity. The patient understand her illness and understand the reason for treatment. 4. Please feel free to call if any questions, telephone #[phone]. Dictated by... Diony Patel M.D. ANA PAULA/kathia TD: 03/02/2017 23:11 JOB #: [id number] CONSULTATION REPORT Page 1 of 1 X Diony Patel MD X CONSULTATION REPORT
--- NOTE | ~2017-02-21 | CO ---
Unit #: [id number] #: [id number] Patient: MIRNA WITT [id number] [address] [address] [id number] MR#: [id number] NAME: MIRNA WITT. ROOM: [facility] Age: 61 Sex: F Admission Date: 02/21/2017 : 1955 Attending Physician: Andrew Stark M.D. Primary Care Physician: Kyle Carpenter M.D. CONSULTATION REPORT REASON FOR CONSULTATION Critical care management and respiratory failure. 61-year-old female who was admitted initially with a complaint of lower extremity wound and taken to the OR for exploration and could not be extubated. Postoperatively, went into respiratory failure. I am seeing the patient at bedside, currently intubated, sedated. REVIEW OF SYSTEMS Unobtainable. PAST MEDICAL HISTORY Significant for: 1. COPD. 2. Diabetes. 3. Chronic pain. 4. Neuropathy. 5. Hyperlipidemia. 6. Dementia. 7. Charcot foot. SURGICAL HISTORY 1. Foot surgery. 2. Hysterectomy. 3. Skin graft. SOCIAL HISTORY Active smoker. No alcohol, no drug abuse. FAMILY HISTORY Diabetes, breast cancer, hypertension. ALLERGIES Amoxicillin. MEDICATIONS 1. Gabapentin. 2. Requip. 3. Potassium. 4. Toprol. 5. Aricept. 6. Neurontin. 7. Levemir. 8. NovoLog. Unit #: [id number] #: [id number] Patient: MIRNA WITT 9. Metformin. 10. Simvastatin. PHYSICAL EXAMINATION VITAL SIGNS: Temperature currently is 97, pulse 82, respirations 162, blood pressure 96/46 on ventilator. CVS: S1+ S2. RESPIRATIONS: Bilateral air entry, bilateral mild rhonchi. GI: Nontender, soft. Bowel sounds positive. EXTREMITIES: Positive dressing on the left lower extremity. DIAGNOSTIC STUDIES LABORATORY: Blood gas - pH of 7.27, pCO2 is 52, pO2 is 83. BUN is 14, creatinine 0.9. Her bicarb is 22. White count is 25, hemoglobin 11, hematocrit 37. Platelet count is 302. IMAGING: Chest x-ray has been reviewed. ASSESSMENT AND PLAN 1. Postop acute respiratory failure. 2. Chronic obstructive pulmonary disease exacerbation. 3. Left lower extremity wound. 4. Sepsis. 5. Toxic metabolic encephalopathy. 6. Urinary tract infection. Plan is to continue patient on a ventilator support, add IV steroids, monitor blood pressure. Start her on IV pressors. Keep MAP above 65. GI and DVT prophylaxis. Antibiotics as per infectious disease. Extubation trial either tomorrow once stable and continue bronchodilators. We will continue to monitor. Follow cultures and order troponin, BNP and a 2D echo. Please see orders for detailed plan. Thank you very much for his consultation. We will continue to follow the patient. Dictated by... Grace Alcantara M.D. ANTONIETA/elmer TD: 02/23/2017 12:18 JOB #: [id number] CONSULTATION REPORT Page 1 of 1 X Grace Alcantara MD X CONSULTATION REPORT
--- NOTE | ~2017-02-21 | CR72 ---
[facility] A Service of [facility] RADIOLOGY TEXT RESULTS PATIENT: MIRNA WITT LOCATION: [address] : [birth year] UNIT #: [id number] AGE: [address]: Andrew Stark MD SEX: F ORDER DR: [id number] [facility] [address] [facility]. [place], [place] [address] [id number] I MR#: [id number] Acc #: [id number] NAME: MIRNA WITT. : 1955 SEX: F STUDY DATE/TIME: 02/24/2017 05:04 UNIT: [facility] ROOM: [facility] STUDY DESCRIPTION: CR Chest Single View Portable Attending Physician: Andrew Stark M.D. Ordering Physician: Grace Alcantara M.D. Primary Care Physician: Kyle Carpenter M.D. MEDICAL IMAGING REPORT This report is preliminary unless electronic signature is present EXAM Portable chest 02/24 at 05:04 INDICATIONS Sepsis, fever, shortness of air. FINDINGS AP portable chest compared with 02/23/2017. ET tube tip remains just below the thoracic inlet. Right IJ line in the SVC. Heart size stable. Mild infiltrate noted in the right lung base is stable. Underlying emphysema is likely present. No pneumothorax. Dictated by... Blade Nieves Jr., M.D. THIS IS AN ELECTRONICALLY VERIFIED REPORT Blade Nieves Jr., M.D. at 02/24/2017 10:40 PM TIP/bethany TD: 02/24/2017 07:31 JOB #: [id number] MEDICAL IMAGING REPORT Page 1 of 1 COPY
--- NOTE | ~2017-02-21 | HP ---
Unit #: [id number] #: [id number] Patient: MIRNA WITT [id number] [address] [place], [place] [address] [id number] I MR#: [id number] NAME: MIRNA WITT. ROOM: 315 Age: 61 Sex: F Admission Date: 02/21/2017 : 1955 Attending Physician: Andrew Stark M.D. Primary Care Physician: Kyle Carpenter M.D. HISTORY AND PHYSICAL CHIEF COMPLAINT Confusion, change in mental status, fever of 103.6 in the emergency room. HISTORY OF PRESENT ILLNESS This is a 61-year-old female who has a past medical history significant for history of chronic obstructive pulmonary disease. She has oxygen at home and uses it on a p.r.n. basis. She has insulin dependent diabetes, dyslipidemia, chronic pain, diabetic peripheral neuropathy, history of dementia, history of Charcot foot. She was brought by EMS to the emergency room with a chief complaint of altered mental status. In the emergency room on arrival she was found to have temperature 103.6, heart rate 117, blood pressure 153/75. On further workup, urine shows mild urinary tract infection. (1)____ so far negative. CT of the head is pending at the time of dictation. She was found to have elevated white count of 31,000, temperature 103.3 with early sepsis and has eventually been admitted. She also has been having some cough which is mainly nonproductive cough. She has no chest pain. No nausea. Vomiting. No abdominal pain. PAST MEDICAL HISTORY 1. History of chronic obstructive pulmonary disease. Has oxygen at home. 2. History of diabetes, insulin dependent. 3. History of chronic pain. 4. Diabetic neuropathy, peripheral neuropathy. 5. History of hyperlipidemia. 6. Dementia. 7. History of Charcot foot. PAST SURGICAL HISTORY 1. History of foot surgery. 2. Hysterectomy. 3. History of left foot skin graft. SOCIAL HISTORY The patient has a history of 40 pack year smoking history. She denies alcohol. She denies illicit drug use. She lives at home with a daughter. FAMILY HISTORY Diabetes, breast cancer, hypertension in the family. ALLERGIES Amoxicillin. Unit #: [id number] #: [id number] Patient: MIRNA WITT HOME MEDICATIONS 1. Gabapentin 800 mg q.i.d. 2. Requip 0.5 mg t.i.d. 3. Potassium chloride 10 mEq b.i.d. 4. Toprol XL 100 mg daily. 5. Aricept 5 mg at bedtime. 6. Neurontin 100 mg q.i.d. 7. Levemir 25 units subcutaneous in the morning and evening. 8. NovoLog 15 units t.i.d. 9. Metformin 500 mg 2 tablets b.i.d. 10. Simvastatin 40 mg p.o. daily. REVIEW OF SYSTEMS All review of systems is negative except as per history of present illness. PHYSICAL EXAMINATION GENERAL: Middle-aged female lying in the bed comfortably. Currently not in any distress. She appears anxious, confused, agitated. VITALS: Currently, temperature 103.6, heart rate 117, respiratory rate 22, blood pressure 153/75. HEENT: Head is atraumatic, normocephalic. No icterus. Pupils equal and reactive to light and accommodation. Pharynx normal. NECK: Supple. No jugular venous distension. No thyromegaly. No cervical adenopathy. LUNGS: Clear to auscultation. No rhonchi. No wheezing. HEART: S1 and S2 regular rate and rhythm. Tachycardia. ABDOMEN: Soft, nontender and nondistended. Bowel sounds positive. EXTREMITIES: Inspection normal. No cyanosis. No clubbing. No edema. SKIN: There is an open wound to the left foot inner aspect with mild surrounding erythema. PSYCHIATRIC: She is anxious. Normal affect. NEUROLOGIC: No focal neurologic deficit. Cranial nerves II through XII intact. Alert, awake and oriented times two at this time. DIAGNOSTIC STUDIES IMAGING: Chest x-ray negative. CT head pending at the time of dictation. LABORATORY: Urinalysis shows (2)____ appearance, WBCs 10-25. CBC, white blood cell count 31,000, hemoglobin 15, hematocrit 47, platelets 396, lactic acid level 2.3, sodium 133, potassium 4.3, chloride 95, CO 25, glucose 231, BUN 17, creatinine 0.7. LFTs within normal limits except alkaline phosphatase 104. INR is 1. ASSESSMENT/PLAN 1. Sepsis with fever. Empirically started with broad spectrum antibiotics, Zosyn and vancomycin. 2. Change in mental status. Most likely secondary to fever and sepsis. 3. Mild urinary tract infection. 4. History of chronic obstructive pulmonary disease. 5. Insulin dependent diabetes. Place on insulin sliding scale. 6. History of dyslipidemia. 7. Chronic back pain. 8. History of diabetic peripheral neuropathy with confusion. I will hold Neurontin at this time. 9. History of dementia. Unit #: [id number] #: [id number] Patient: MIRNA WITT 10. DVT prophylaxis. Will place the patient on Lovenox. Dictated by Jostin Chowdhury/deven TD: 02/22/2017 07:25 JOB #: [id number] HISTORY AND PHYSICAL Page 1 of 1 X X HISTORY AND PHYSICAL
--- NOTE | ~2017-02-21 | DS ---
Unit #: [id number] #: [id number] Patient: MIRNA WITT [id number] [address] [place], [place] [address] [id number] I MR#: [id number] NAME: MIRNA WITT. ROOM: 465 Age: 61 Sex: F Admission Date: 02/21/2017 : 1955 Discharge Date: 03/05/2017 Attending Physician: Andrew Stark M.D. Primary Care Physician: Kyle Carpenter M.D. DISCHARGE SUMMARY REASON FOR ADMISSION Confused, mental status change, fever of 103.6. HISTORY OF PRESENT ILLNESS/HOSPITAL COURSE The patient is a 61-year-old female, a relatively poor historian, with questionable social support at home, who presented after she had confusional episodes as well as decrease in mental status at home. She has a prior history of insulin-dependent diabetes poorly controlled, hyperlipidemia, chronic pain, diabetic peripheral neuropathy, prior history of mild to moderate dementia, history of Charcot foot, who presented secondary to above. CT brain was performed in the emergency room which was negative for acute process. Initial diagnosis was made of sepsis with fever, change in mental status, COPD, possible exacerbation, insulin-dependent diabetes. Secondary to sepsis, the patient was placed on initial sepsis protocol with broad-spectrum IV antibiotics and patient was placed in the ICU for ongoing care. Her tobramycin was later discontinued and she was placed on medical telemetry floor and, after examination, it was noted she did have a left foot/lower extremity cellulitis which was present. Consultation was placed to [facility] as well as Infectious Disease Services. Both services followed. The patient underwent incision and drainage/debridement of left lower extremity cellulitis on 02/23/2017. Postoperatively, both Dr. Alcantara as well as Dr. Wilder, continued to follow the patient while she was in the ICU. She did have a slow wean from ventilator and she did have postoperative respiratory failure which was gradually improved with IV Solu-Medrol, antibiotics as well as routine care. Eventually, she was weaned off the ventilator. The patient was subsequently transferred to telemetry floor. Her mental status did show slow improvement. Her blood cultures did come back positive for group G strep and she was appropriately treated under the premise of ID Services. Initial urinalysis was positive. Urine cultures did not yield any Unit #: [id number] #: [id number] Patient: MIRNA WITT long-term acute bacterial growth. It was presumed she did have some level of aspiration pneumonia secondary to mental status change but, again, she was treated with broad-spectrum antibiotics throughout hospital course. After she was weaned off of ventilator, the patient did have some mild confusional episodes. Consultation was placed to Dr. Patel of Psychiatry Services for medical decision capability. The patient does have the ability to make her own medical decisions. Physical and Occupational Therapy Services also evaluated the patient. Consideration was given to possible transition to rehab facility. However, the patient was adamant that she wished to go home. The patient did undergo a CT of her left lower extremity for concern for possible underlying osteomyelitis and that was negative for abscess and/or osteomyelitis. At this point in time, the patient is currently alert and oriented x3. She does have fairly questionable home support as some of her wounds are chronic and, in the past, she has been followed by Dr. Thorne which we did learn in the later half of her hospital stay and, in the past, she was recommended to have a wound VAC, which was placed by the visiting nurses. However, the patient does remove it fairly frequently. At time of discharge, the patient will receive one IV injection of Dalbavancin 1,000 mg IV times one. Afterwards, she will require no further antibiotics per ID Services. Overall, the patient's long-term prognosis is guarded/poor at best secondary to poor social situation as well patient's lack of insight and/or chronic medical conditions. I did review her level of care with the patient's daughter as well as other family members who questioned her decision making ability. However, per Dr. Patel, the patient is able to make decisions. I do believe that she has some level of dementia, likely mild to moderate in nature. However, at the present time, she is capable to make those decisions. She will be discharged home with visiting nurse at time of discharge. FINAL DISCHARGE DIAGNOSES 1. Sepsis present on admission, now resolved. 2. Left lower extremity cellulitis status post incision and drainage by [facility] with CT performed negative for osteomyelitis. 3. Postoperative respiratory failure. 4. Acute exacerbation of chronic obstructive pulmonary disease. 5. Presumed aspiration pneumonia. 6. However, chest x-ray negative. 7. Bacteremia. 8. Toxic metabolic encephalopathy. 9. Acute delirium likely on baseline dementia. 10. Methicillin-resistant Staphylococcus aureus cellulitis left lower extremity. 11. Chronic respiratory failure. 12. End-stage chronic obstructive pulmonary disease on two liters with questionable compliance. Unit #: [id number] #: [id number] Patient: MIRNA WITT 13. Obesity. 14. Depression. 15. Questionable compliance/noncompliance. 16. Diabetes type 2. 17. Hyperlipidemia. FINAL DISCHARGE MEDICATIONS 1. Dalbavancin 1,000 mg IV times one. 2. Tylenol 650 mg p.o. q.6 p.r.n. 3. Seroquel 50 mg p.o. b.i.d. 4. Lopressor 25 mg p.o. b.i.d. 5. Catapres 0.2 mg p.o. q.h.s. 6. Levemir 20 units subcu b.i.d. 7. Humalog 5 units t.i.d. with meals. 8. Klor-Con 10 mEq p.o. b.i.d. DISCHARGE CONDITION Stable. DISCHARGE DISPOSITION Home with [facility]. TIME SPENT Fifty-five minutes. LONG-TERM PROGNOSIS Guarded/poor. Dictated by... Jostin Benton/robbie TD: 03/05/2017 12:27 JOB #: [id number] DISCHARGE SUMMARY Page 1 of 1 X Andrew Stark MD X DISCHARGE SUMMARY
--- NOTE | ~2017-02-21 | CR72 ---
[facility] A Service of [facility] & [facility] RADIOLOGY TEXT RESULTS PATIENT: MIRNA WITT LOCATION: [facility] 315-01 : 55 UNIT #: [id number] AGE: [address]: Andrew Stark MD SEX: F ORDER DR: [id number] [facility] [address]. [place], [place] [address] [id number] I MR#: [id number] Acc #: [id number] NAME: MIRNA WITT. : 1955 SEX: F STUDY DATE/TIME: 02/21/2017 20:15 UNIT: CEDOF ROOM: 04516 STUDY DESCRIPTION: CR Chest Single View Portable Attending Physician: Deandre Kwan M.D. Ordering Physician: Ed Keanu Del Rosario M.D. Primary Care Physician: Kyle Carpenter M.D. MEDICAL IMAGING REPORT This report is preliminary unless electronic signature is present EXAM Portable chest HISTORY Acute mental status decline today. FINDINGS The cardiac size and pulmonary vascularity are normal. No airspace infiltrates or effusions. Calcified right hilar nodes. IMPRESSION No acute findings and no active disease. Dictated by... Diogenes Smith M.D. THIS IS AN ELECTRONICALLY VERIFIED REPORT Diogenes Smith M.D. at 02/22/2017 9:11 AM LILIAN/nae TD: 02/21/2017 23:30 JOB #: [id number] MEDICAL IMAGING REPORT Page 1 of 1 COPY
--- NOTE | ~2017-02-21 | CT90 ---
[facility] A Service of [facility] & [facility] RADIOLOGY TEXT RESULTS PATIENT: MIRNA WITT LOCATION: [address]12-25 : [birth year] UNIT #: [id number] AGE: [address]: Andrew Satrk MD SEX: F ORDER DR: [id number] [facility] [address]. [place], [place] [address] [id number] I MR#: [id number] Acc #: [id number] NAME: MIRNA WITT. : 1955 SEX: F STUDY DATE/TIME: 02/26/2017 19:34 UNIT: [facility] ROOM: [facility] STUDY DESCRIPTION: CT Lower Ext Lt W Cont Attending Physician: Andrew Stark M.D. Ordering Physician: Walt Wilder M.D. Primary Care Physician: Kyle Carpenter M.D. MEDICAL IMAGING REPORT This report is preliminary unless electronic signature is present EXAM CT left lower extremity. HISTORY Pain and swelling left lower extremity x5 days, history of MRSA. FINDINGS Axial images performed through the left lower extremity following IV contrast. Multiplanar reconstructed images reviewed at a workstation. This CT exam was performed with one or more of the following radiation dose reduction techniques: Automatic exposure control, adjustment of mA and/or kV according to patient size, and iterative reconstruction. Large cutaneous defect is seen in the posterior medial aspect of the lower leg possibly related to fasciotomy. The defect measures at least 9 cm in length and extends all the way to the deep compartment. Surgical packing noted. Generalized soft tissue swelling and edema throughout the lower extremity may reflect underlying cellulitis. Some confluent edema over the anterior aspect of the lower leg. No drainable fluid collection or abscess. No definite deep compartment involvement. Osseous structures remarkable for bone infarct distal tibia. Lower extremity musculature appears normal. IMPRESSION 1. Sizable cutaneous defect along the posterior medial aspect of the lower leg possibly related to fasciotomy. 2. Generalized soft tissue swelling and edema throughout the lower extremity with some confluent edema in the anterior lower leg. No drainable fluid collection or abscess. Findings may reflect cellulitis. 3. No deep compartment involvement identified. STS. [facility] A Service of [facility] & [facility] RADIOLOGY TEXT RESULTS PATIENT: MIRNA WITT LOCATION: [address] : [birth year] UNIT #: [id number] AGE: [address]: Andrew Stark MD SEX: F ORDER DR: Dictated by... Patricia Haider M.D. THIS IS AN ELECTRONICALLY VERIFIED REPORT Patricia Haider M.D. at 02/27/2017 6:36 PM Susan TD: 02/27/2017 00:03 JOB #: [id number] MEDICAL IMAGING REPORT Page 1 of 1 COPY
--- NOTE | ~2017-02-21 | CR72 ---
[facility] A Service of [facility] & [facility] RADIOLOGY TEXT RESULTS PATIENT: MIRNA WITT LOCATION: [facility] 465-01 : 55 UNIT #: [id number] AGE: [address]: Andrew Stark MD SEX: F ORDER DR: [id number] [facility] [address] [place], [place] [address] [id number] I MR#: [id number] Acc #: [id number] NAME: MIRNA WITT. : 1955 SEX: F STUDY DATE/TIME: 03/01/2017 3:32 UNIT: [facility] ROOM: [facility] STUDY DESCRIPTION: CR Chest Single View Portable Attending Physician: Andrew Stark M.D. Ordering Physician: Grace Alcantara M.D. Primary Care Physician: Kyle Carpenter M.D. MEDICAL IMAGING REPORT This report is preliminary unless electronic signature is present EXAM Portable chest HISTORY Respiratory failure, sepsis, daily portable chest, symptoms for 8 days. 03/01, comparison 02/28. FINDINGS A portable view of the chest is obtained. The heart size and vascularity are normal and the lungs are clear. The central venous catheter is in good position. IMPRESSION No change from yesterday's study. No active disease. Dictated by... Jose No M.D. THIS IS AN ELECTRONICALLY VERIFIED REPORT Jose No M.D. at 03/01/2017 9:54 PM FEL/psc TD: 03/01/2017 19:14 JOB #: [id number] MEDICAL IMAGING REPORT Page 1 of 1 COPY
[~2017-02-21 20:12] MED LIST: ARICEPT5 M1 PO; ARTHRITIS PAIN650 M2 PO; ASPIRIN81 M1 PO; ATRAC-TAIN142 GM EXT; BACTRIM DS TABL1 TA1 PO; CLINDAMYCIN HC300 MG PO; COGENTIN1 M1 PO; COMBIVENT RESPIM4 GM INH; COZAAR100 MG PO; CYANOCOBALAM1000 MCG PO; DOCUSATE SODIU100 MG PO; DOXYCYCLINE HY100 M3 PO; DOXYCYCLINE PO; DURAGESIC1 EAC1 TD; DURAGESIC1 EAC2 TD; DURAGESIC1 EACH TD; DURAGESIC100 MCG EXT; DURAGESIC100 MCG TD; DURAGESIC25 MCG EXT; DURAGESIC25 MCG TD; FENTANYL TOP; GABAPENTIN800 MG PO; GLUCOTROL PO; HALDOL PO; HUMALOG100 UNIT/2 SUBQ; HYDROCODON-ACE1 EAC3 PO; HYDROCODON-ACE1 EAC5 PO; ILEVRO1.7 ML OS; KCL PO; KEFLEX500 MG PO; LASIX20 MG PO; LEVEMIR SUBQ; LIPITOR80 MG PO; LOSARTAN POTAS100 MG PO; LYRICA PO; MEDROL DOSEPAK4 MG PO; METOPROLOL SUC100 MG PO; MICRO-K10 MEQ PO; MIRAPEX PO; MIRAPEX0.75 MG PO; MIRAPEX1.5 MG PO; NEURONTIN PO; NEURONTIN100 MG PO; NEURONTIN600 MG PO; NEURONTIN800 MG PO; NIACIN1000 MG PO; NIASPAN1000 MG PO; NOVOLOG100 U/ML SUBQ; OXYGEN; PERCOCET 10/3251 TAB PO; PERCOCET 5-3251 TAB PO; POTASSIUM CHLO10 ME1 PO; POTASSIUM CHLO10 MEQ PO; PRAMIPEXOLE DI0.5 MG PO; PREDNISONE PO; PREDNISONE10 MG PO; ROXICODONE5 MG PO; SYMBICORT INH; TOPROL XL100 MG PO; VASOCIDIN O5 ML OPTH OS; VIGAMOX3 M1 OS; WELLBUTRIN100 MG PO; XARELTO PO; ZETIA PO; ZYVOX600 MG PO
[2017-02-21 20:38] LABS: BASOPHIL# 0.1 X10e3 (0-0.3); BASOPHIL% 0.2 % (0-2.5); DIFF IND YES; EOSINOPHIL% 0.1 % (0.0-7.0); HEMATOCRIT 47.5 % (35.0-45.0); HEMOGLOBIN 15.3 gm/dL (12.0-16.0); LYMPHOCYTE# 0.2 X10e3 (1.0-3.5); LYMPHOCYTE% 0.7 % (17.0-45.0); MEAN CELL VOLUME 91.7 FL (83-96); MEAN CORPUSCULAR HEMOGLOBIN 29.5 PG (28-34); MEAN CORPUSCULAR HGB CONC 32.2 g/dL (30-36); MONOCYTE# 0.5 X10e3 (0-1.0); MONOCYTE% 1.6 % (3.0-12.0); NEUTROPHIL# 30.4 X10e3 (1.5-7.1); NEUTROPHIL% 97.4 % (40-75); PLATELET COUNT 396 X10e3 (140-420); RED BLOOD COUNT 5.19 X10e (3.90-5.30); WHITE BLOOD COUNT 31.2 X10e3 (4.0-10.5)
[2017-02-21 20:45] LABS: PARTIAL THROMBOPLASTIN TIME 24.7 SECONDS (23.5-31.3); PROTHROMBIN TIME (PATIENT) 10.5 SECONDS (9.6-11.5)
[2017-02-21 20:56] LABS: BILIRUBIN, DIRECT 0.1 mg/dL (0.0-0.2); BILIRUBIN,INDIRECT 0.6 mg/dL (0.0-0.9); BILIRUBIN,TOTAL 0.7 mg/dL (0.2-2.0); BUN/CREATININE RATIO 24.28; CALCIUM SERUM 9.2 mg/dL (8.4-10.2); CREATININE SERUM 0.7 mg/dL (0.6-1.4); GLOM FILT RATE Estimated 93.5 mL/min (>60); POTASSIUM 4.3 mmol/L (3.5-5.1); PROTEIN TOTAL SERUM 7.9 g/dL (6.0-8.3)
[2017-02-21 21:01] LABS: ANISOCYTOSIS MOD; PLATELET ESTIMATE NORMAL (NORMAL)
[2017-02-21 21:02] LABS: POIKILOCYTOSIS SL
[2017-02-21 21:14] LABS: URINE SOURCE CLEAN CATCH
[2017-02-21 21:18] LABS: URINE APPEARANCE CLEAR; URINE BILIRUBIN NEG (NEG); URINE BLOOD 1+ (NEG); URINE COLOR YELLOW; URINE GLUCOSE NEG (NEG); URINE KETONE NEG (NEG); URINE LEUKOCYTE ESTERASE NEG (NEG); URINE NITRATE NEG (NEG); URINE PH 5.5 (5-8); URINE PROTEIN 3+ (NEG); URINE SPECIFIC GRAVITY 1.018 (1.003-1.035); URINE UROBILINOGEN 0.2 MG/DL (NEG)
[2017-02-21 21:20] LABS: CULTURE INDICATED? YES; URBCS1 AUWI 0-2 /[HPF] (0-2); URINE BACTERIA AUWI NEG (NEGATIVE); URINE SQUAMOUS EPITHELIAL CELL MOD /[HPF]
[2017-02-21] MEDS ORDERED: METFORMIN HCL500 M3 PO (21:39)
[2017-02-21] MEDS ORDERED: SIMVASTATIN40 MG PO (21:40)
[2017-02-21 22:35] LABS: INFLUENZA A NEG (NEG); INFLUENZA B NEG (NEG)
[2017-02-22 06:08] LABS: HEMATOCRIT 43.5 % (35.0-45.0); HEMOGLOBIN 13.4 gm/dL (12.0-16.0); MEAN CELL VOLUME 94.5 FL (83-96); MEAN CORPUSCULAR HEMOGLOBIN 29.1 PG (28-34); MEAN CORPUSCULAR HGB CONC 30.8 g/dL (30-36); RED BLOOD COUNT 4.61 X10e (3.90-5.30); WHITE BLOOD COUNT 36.4 X10e3 (4.0-10.5)
[2017-02-22 06:55] LABS: ALBUMIN SERUM 3.3 g/dL (3.5-5.0); BILIRUBIN,TOTAL 0.4 mg/dL (0.2-2.0); BUN/CREATININE RATIO 17.77; CALCIUM SERUM 8.1 mg/dL (8.4-10.2); CREATININE SERUM 0.9 mg/dL (0.6-1.4); GLOM FILT RATE Estimated 69.1 mL/min (>60); POTASSIUM 4.6 mmol/L (3.5-5.1); PROTEIN TOTAL SERUM 6.8 g/dL (6.0-8.3)
[2017-02-23 01:57] LABS: ARTERIAL BLD GAS O2 SATURATION 92.9 % (90.0-100.0); ARTERIAL BLOOD GAS CARBOXY HB 0.8 %sat (0.0-9.0); ARTERIAL BLOOD GAS HCO3 25.4 mmol/L; ARTERIAL BLOOD GAS MET HB 0.7 %sat (0.0-2.0); ARTERIAL BLOOD GAS PO2 80.3 mmHg (80.0-100); ARTERIAL BLOOD GAS pH 7.233 (7.350-7.450)
[2017-02-23 01:58] LABS: ARTERIAL BLOOD GAS PCO2 60.2 mmHg (35.0-45.0); ARTERIAL DRAW? YES
[2017-02-23 01:59] LABS: ARTERIAL BLOOD GAS ART SITE LEFT BRACHIAL; ARTERIAL BLOOD GAS DELIVERY VENT; ARTERIAL BLOOD GAS VENT MODE AC
[2017-02-23 04:04] LABS: ARTERIAL BLD GAS O2 SATURATION 93.6 % (90.0-100.0); ARTERIAL BLOOD GAS CARBOXY HB 0.7 %sat (0.0-9.0); ARTERIAL BLOOD GAS HCO3 23.9 mmol/L; ARTERIAL BLOOD GAS MET HB 0.7 %sat (0.0-2.0); ARTERIAL BLOOD GAS PO2 80.6 mmHg (80.0-100); ARTERIAL BLOOD GAS pH 7.256 (7.350-7.450)
[2017-02-23 04:09] LABS: ARTERIAL BLOOD GAS PCO2 53.9 mmHg (35.0-45.0)
[2017-02-23 04:10] LABS: ARTERIAL BLOOD GAS ART SITE RIGHT BRACHIAL; ARTERIAL BLOOD GAS DELIVERY VENT; ARTERIAL BLOOD GAS VENT MODE AC; ARTERIAL DRAW? YES
[2017-02-23 05:08] LABS: BUN/CREATININE RATIO 16.66; CREATININE SERUM 0.9 mg/dL (0.6-1.4); GLOM FILT RATE Estimated 69.1 mL/min (>60); POTASSIUM 3.5 mmol/L (3.5-5.1)
[2017-02-23 05:09] LABS: HEMATOCRIT 37.1 % (35.0-45.0); HEMOGLOBIN 11.7 gm/dL (12.0-16.0); MEAN CELL VOLUME 94.2 FL (83-96); MEAN CORPUSCULAR HEMOGLOBIN 29.6 PG (28-34); MEAN CORPUSCULAR HGB CONC 31.4 g/dL (30-36); MEAN PLATELET VOLUME 7.3 FL (6.5-11.5); RED BLOOD COUNT 3.94 X10e (3.90-5.30); RED CELL DISTRIBUTION WIDTH 15.6 % (11.0-15.5); WHITE BLOOD COUNT 25.2 X10e3 (4.0-10.5)
[2017-02-23 08:02] LABS: ARTERIAL BLD GAS O2 SATURATION 94.5 % (90.0-100.0); ARTERIAL BLOOD GAS HCO3 24.1 mmol/L; ARTERIAL BLOOD GAS MET HB 0.9 %sat (0.0-2.0); ARTERIAL BLOOD GAS PO2 83.8 mmHg (80.0-100); ARTERIAL BLOOD GAS pH 7.271 (7.350-7.450)
[2017-02-23 08:03] LABS: ARTERIAL BLOOD GAS ART SITE LEFT RADIAL; ARTERIAL BLOOD GAS DELIVERY VENT; ARTERIAL BLOOD GAS PCO2 52.3 mmHg (35.0-45.0); ARTERIAL BLOOD GAS VENT MODE AC; ARTERIAL DRAW? YES
[2017-02-23 08:34] LABS: ALBUMIN SERUM 2.3 g/dL (3.5-5.0); BILIRUBIN,TOTAL 0.5 mg/dL (0.2-2.0); BUN/CREATININE RATIO 15.55; CALCIUM SERUM 7.1 mg/dL (8.4-10.2); CREATININE SERUM 0.9 mg/dL (0.6-1.4); GLOM FILT RATE Estimated 69.1 mL/min (>60); MAGNESIUM 1.4 mg/dL (1.6-3.0); PHOSPHOROUS 3.2 mg/dL (2.5-4.6); POTASSIUM 3.8 mmol/L (3.5-5.1); PROTEIN TOTAL SERUM 5.7 g/dL (6.0-8.3)
[2017-02-23 14:47] LABS: ARTERIAL BLD GAS O2 SATURATION 95.5 % (90.0-100.0); ARTERIAL BLOOD GAS ART SITE RIGHT RADIAL; ARTERIAL BLOOD GAS CARBOXY HB 0.6 %sat (0.0-9.0); ARTERIAL BLOOD GAS DELIVERY VENT; ARTERIAL BLOOD GAS HCO3 22.5 mmol/L; ARTERIAL BLOOD GAS MET HB 0.8 %sat (0.0-2.0); ARTERIAL BLOOD GAS PCO2 35.7 mmHg (35.0-45.0); ARTERIAL BLOOD GAS PO2 76.6 mmHg (80.0-100); ARTERIAL BLOOD GAS VENT MODE AC; ARTERIAL BLOOD GAS pH 7.408 (7.350-7.450); ARTERIAL DRAW? YES
[2017-02-24 05:31] LABS: ARTERIAL BLOOD GAS HCO3 21.5 mmol/L; ARTERIAL BLOOD GAS PCO2 37.3 mmHg (35.0-45.0); ARTERIAL BLOOD GAS PO2 72.4 mmHg (80.0-100); ARTERIAL BLOOD GAS pH 7.368 (7.350-7.450)
[2017-02-24 05:32] LABS: ARTERIAL BLD GAS O2 SATURATION 93.9 % (90.0-100.0); ARTERIAL BLOOD GAS ALLEN TEST NORMAL; ARTERIAL BLOOD GAS ART SITE RIGHT BRACHIAL; ARTERIAL BLOOD GAS CARBOXY HB 0.7 %sat (0.0-9.0); ARTERIAL BLOOD GAS MET HB 0.9 %sat (0.0-2.0); ARTERIAL BLOOD GAS VENT MODE AC; ARTERIAL DRAW? YES
[2017-02-24 05:33] LABS: BASOPHIL# 0.1 X10e3 (0-0.3); BASOPHIL% 0.5 % (0-2.5); EOSINOPHIL# 0.1 X10e3 (0-0.7); EOSINOPHIL% 0.5 % (0.0-7.0); HEMATOCRIT 37.7 % (35.0-45.0); HEMOGLOBIN 11.7 gm/dL (12.0-16.0); LYMPHOCYTE% 6.6 % (17.0-45.0); MEAN CELL VOLUME 94.5 FL (83-96); MEAN CORPUSCULAR HEMOGLOBIN 29.2 PG (28-34); MEAN CORPUSCULAR HGB CONC 30.9 g/dL (30-36); MEAN PLATELET VOLUME 7.8 FL (6.5-11.5); MONOCYTE# 0.5 X10e3 (0-1.0); MONOCYTE% 3.6 % (3.0-12.0); NEUTROPHIL# 12.8 X10e3 (1.5-7.1); NEUTROPHIL% 88.8 % (40-75); PLATELET COUNT 284 X10e3 (140-420); RED BLOOD COUNT 3.99 X10e (3.90-5.30); RED CELL DISTRIBUTION WIDTH 15.4 % (11.0-15.5); WHITE BLOOD COUNT 14.4 X10e3 (4.0-10.5)
[2017-02-24 05:56] LABS: DIFF IND NO
[2017-02-24 07:09] LABS: ALBUMIN SERUM 2.2 g/dL (3.5-5.0); BILIRUBIN,TOTAL 0.5 mg/dL (0.2-2.0); BUN/CREATININE RATIO 13.75; CALCIUM SERUM 7.5 mg/dL (8.4-10.2); CREATININE SERUM 0.8 mg/dL (0.6-1.4); GLOM FILT RATE Estimated 79.6 mL/min (>60); POTASSIUM 4.2 mmol/L (3.5-5.1); PROTEIN TOTAL SERUM 5.3 g/dL (6.0-8.3)
[2017-02-25 05:40] LABS: BASOPHIL# 0.1 X10e3 (0-0.3); BASOPHIL% 0.7 % (0-2.5); EOSINOPHIL# 0.1 X10e3 (0-0.7); EOSINOPHIL% 1.2 % (0.0-7.0); HEMATOCRIT 36.5 % (35.0-45.0); HEMOGLOBIN 11.4 gm/dL (12.0-16.0); LYMPHOCYTE# 0.9 X10e3 (1.0-3.5); LYMPHOCYTE% 9.5 % (17.0-45.0); MEAN CELL VOLUME 93.7 FL (83-96); MEAN CORPUSCULAR HEMOGLOBIN 29.4 PG (28-34); MEAN CORPUSCULAR HGB CONC 31.4 g/dL (30-36); MEAN PLATELET VOLUME 7.8 FL (6.5-11.5); MONOCYTE# 0.5 X10e3 (0-1.0); NEUTROPHIL# 8.3 X10e3 (1.5-7.1); NEUTROPHIL% 83.6 % (40-75); PLATELET COUNT 305 X10e3 (140-420); RED BLOOD COUNT 3.89 X10e (3.90-5.30); RED CELL DISTRIBUTION WIDTH 15.3 % (11.0-15.5); WHITE BLOOD COUNT 9.9 X10e3 (4.0-10.5)
[2017-02-25 05:43] LABS: DIFF IND NO
[2017-02-26 04:46] LABS: ARTERIAL BLD GAS O2 SATURATION 94.9 % (90.0-100.0); ARTERIAL BLOOD GAS HCO3 24.4 mmol/L; ARTERIAL BLOOD GAS MET HB 0.6 %sat (0.0-2.0); ARTERIAL BLOOD GAS PCO2 43.4 mmHg (35.0-45.0); ARTERIAL BLOOD GAS PO2 80.3 mmHg (80.0-100); ARTERIAL BLOOD GAS pH 7.359 (7.350-7.450)
[2017-02-26 05:08] LABS: ARTERIAL BLOOD GAS ALLEN TEST NORMAL; ARTERIAL BLOOD GAS ART SITE LEFT RADIAL; ARTERIAL BLOOD GAS VENT MODE AC; ARTERIAL DRAW? YES
[2017-02-26 06:19] LABS: CALCIUM SERUM 7.9 mg/dL (8.4-10.2); CREATININE SERUM 0.6 mg/dL (0.6-1.4); GLOM FILT RATE Estimated 98.4 mL/min (>60); POTASSIUM 3.6 mmol/L (3.5-5.1)
[2017-02-27 04:29] LABS: ARTERIAL BLD GAS O2 SATURATION 96.3 % (90.0-100.0); ARTERIAL BLOOD GAS CARBOXY HB 0.7 %sat (0.0-9.0); ARTERIAL BLOOD GAS PCO2 48.2 mmHg (35.0-45.0); ARTERIAL BLOOD GAS pH 7.402 (7.350-7.450)
[2017-02-27 04:31] LABS: ARTERIAL BLOOD GAS PO2 72.7 mmHg (80.0-100)
[2017-02-27 04:32] LABS: ARTERIAL BLOOD GAS ALLEN TEST NORMAL; ARTERIAL BLOOD GAS ART SITE RIGHT RADIAL; ARTERIAL BLOOD GAS DELIVERY VENT; ARTERIAL BLOOD GAS VENT MODE AC; ARTERIAL DRAW? YES
[2017-02-27 05:40] LABS: BASOPHIL% 0.2 % (0-2.5); HEMOGLOBIN 11.9 gm/dL (12.0-16.0); LYMPHOCYTE# 0.5 X10e3 (1.0-3.5); LYMPHOCYTE% 4.4 % (17.0-45.0); MEAN CELL VOLUME 92.7 FL (83-96); MEAN CORPUSCULAR HEMOGLOBIN 29.7 PG (28-34); MEAN CORPUSCULAR HGB CONC 32.1 g/dL (30-36); MEAN PLATELET VOLUME 7.8 FL (6.5-11.5); MONOCYTE# 0.2 X10e3 (0-1.0); MONOCYTE% 2.2 % (3.0-12.0); NEUTROPHIL# 9.9 X10e3 (1.5-7.1); NEUTROPHIL% 93.2 % (40-75); PLATELET COUNT 338 X10e3 (140-420); RED BLOOD COUNT 3.99 X10e (3.90-5.30); RED CELL DISTRIBUTION WIDTH 15.3 % (11.0-15.5); WHITE BLOOD COUNT 10.6 X10e3 (4.0-10.5)
[2017-02-27 05:45] LABS: DIFF IND NO
[2017-02-27 06:46] LABS: ALBUMIN SERUM 2.5 g/dL (3.5-5.0); BILIRUBIN,TOTAL 0.4 mg/dL (0.2-2.0); BUN/CREATININE RATIO 26.66; CALCIUM SERUM 8.1 mg/dL (8.4-10.2); CREATININE SERUM 0.6 mg/dL (0.6-1.4); GLOM FILT RATE Estimated 98.4 mL/min (>60); POTASSIUM 3.5 mmol/L (3.5-5.1); PROTEIN TOTAL SERUM 6.7 g/dL (6.0-8.3)
[2017-02-28 04:02] LABS: ARTERIAL BLD GAS O2 SATURATION 95.3 % (90.0-100.0); ARTERIAL BLOOD GAS CARBOXY HB 0.6 %sat (0.0-9.0); ARTERIAL BLOOD GAS HCO3 30.4 mmol/L; ARTERIAL BLOOD GAS MET HB 0.9 %sat (0.0-2.0); ARTERIAL BLOOD GAS PCO2 48.3 mmHg (35.0-45.0); ARTERIAL BLOOD GAS pH 7.407 (7.350-7.450)
[2017-02-28 04:03] LABS: ARTERIAL BLOOD GAS ALLEN TEST NORMAL; ARTERIAL BLOOD GAS ART SITE RIGHT RADIAL; ARTERIAL BLOOD GAS DELIVERY VENT; ARTERIAL BLOOD GAS VENT MODE A/C; ARTERIAL DRAW? YES
[2017-02-28 05:42] LABS: DIFF IND NO; EOSINOPHIL% 0.1 % (0.0-7.0); HEMATOCRIT 37.4 % (35.0-45.0); HEMOGLOBIN 11.9 gm/dL (12.0-16.0); LYMPHOCYTE# 0.7 X10e3 (1.0-3.5); LYMPHOCYTE% 7.3 % (17.0-45.0); MEAN CELL VOLUME 93.3 FL (83-96); MEAN CORPUSCULAR HEMOGLOBIN 29.7 PG (28-34); MEAN CORPUSCULAR HGB CONC 31.9 g/dL (30-36); MEAN PLATELET VOLUME 8.2 FL (6.5-11.5); MONOCYTE# 0.4 X10e3 (0-1.0); MONOCYTE% 4.3 % (3.0-12.0); NEUTROPHIL# 8.1 X10e3 (1.5-7.1); NEUTROPHIL% 88.3 % (40-75); PLATELET COUNT 427 X10e3 (140-420); RED BLOOD COUNT 4.01 X10e (3.90-5.30); RED CELL DISTRIBUTION WIDTH 15.7 % (11.0-15.5); WHITE BLOOD COUNT 9.2 X10e3 (4.0-10.5)
[2017-02-28 09:07] LABS: BUN/CREATININE RATIO 28.75; CALCIUM SERUM 8.8 mg/dL (8.4-10.2); CREATININE SERUM 0.8 mg/dL (0.6-1.4); GLOM FILT RATE Estimated 79.6 mL/min (>60); POTASSIUM 3.6 mmol/L (3.5-5.1)
[2017-03-01 04:43] LABS: ARTERIAL BLD GAS O2 SATURATION 93.5 % (90.0-100.0); ARTERIAL BLOOD GAS CARBOXY HB 0.5 %sat (0.0-9.0); ARTERIAL BLOOD GAS HCO3 33.1 mmol/L; ARTERIAL BLOOD GAS MET HB 0.7 %sat (0.0-2.0); ARTERIAL BLOOD GAS pH 7.417 (7.350-7.450)
[2017-03-01 04:50] LABS: ARTERIAL BLOOD GAS ALLEN TEST NORMAL; ARTERIAL BLOOD GAS ART SITE LEFT RADIAL; ARTERIAL BLOOD GAS DELIVERY OXYMIZER; ARTERIAL BLOOD GAS PCO2 51.4 mmHg (35.0-45.0); ARTERIAL BLOOD GAS PO2 72.1 mmHg (80.0-100); ARTERIAL DRAW? YES
[2017-03-01 05:48] LABS: BASOPHIL% 0.3 % (0-2.5); EOSINOPHIL% 0.2 % (0.0-7.0); HEMATOCRIT 37.1 % (35.0-45.0); HEMOGLOBIN 11.9 gm/dL (12.0-16.0); LYMPHOCYTE# 0.7 X10e3 (1.0-3.5); LYMPHOCYTE% 6.9 % (17.0-45.0); MEAN CELL VOLUME 92.8 FL (83-96); MEAN CORPUSCULAR HEMOGLOBIN 29.9 PG (28-34); MEAN CORPUSCULAR HGB CONC 32.2 g/dL (30-36); MEAN PLATELET VOLUME 7.9 FL (6.5-11.5); MONOCYTE# 0.5 X10e3 (0-1.0); MONOCYTE% 5.4 % (3.0-12.0); NEUTROPHIL# 8.5 X10e3 (1.5-7.1); NEUTROPHIL% 87.2 % (40-75); PLATELET COUNT 437 X10e3 (140-420); RED CELL DISTRIBUTION WIDTH 15.6 % (11.0-15.5); WHITE BLOOD COUNT 9.8 X10e3 (4.0-10.5)
[2017-03-01 05:51] LABS: DIFF IND YES
[2017-03-01 06:39] LABS: PLATELET ESTIMATE INCREASED (NORMAL)
[2017-03-01 06:40] LABS: ANISOCYTOSIS SL
[2017-03-01 07:20] LABS: ALBUMIN SERUM 2.5 g/dL (3.5-5.0); BILIRUBIN,TOTAL 0.5 mg/dL (0.2-2.0); BUN/CREATININE RATIO 32.85; CALCIUM SERUM 8.6 mg/dL (8.4-10.2); CREATININE SERUM 0.7 mg/dL (0.6-1.4); GLOM FILT RATE Estimated 93.5 mL/min (>60); POTASSIUM 4.7 mmol/L (3.5-5.1); PROTEIN TOTAL SERUM 6.3 g/dL (6.0-8.3)
[2017-03-02 04:01] LABS: BASOPHIL% 0.4 % (0-2.5); EOSINOPHIL# 0.1 X10e3 (0-0.7); EOSINOPHIL% 0.6 % (0.0-7.0); HEMATOCRIT 41.2 % (35.0-45.0); HEMOGLOBIN 13.2 gm/dL (12.0-16.0); LYMPHOCYTE# 1.4 X10e3 (1.0-3.5); LYMPHOCYTE% 17.5 % (17.0-45.0); MEAN CELL VOLUME 91.9 FL (83-96); MEAN CORPUSCULAR HEMOGLOBIN 29.4 PG (28-34); MEAN CORPUSCULAR HGB CONC 31.9 g/dL (30-36); MEAN PLATELET VOLUME 7.5 FL (6.5-11.5); MONOCYTE# 0.7 X10e3 (0-1.0); MONOCYTE% 8.2 % (3.0-12.0); NEUTROPHIL% 73.3 % (40-75); PLATELET COUNT 501 X10e3 (140-420); RED BLOOD COUNT 4.48 X10e (3.90-5.30); WHITE BLOOD COUNT 8.2 X10e3 (4.0-10.5)
[2017-03-02 04:06] LABS: ARTERIAL BLD GAS O2 SATURATION 92.6 % (90.0-100.0); ARTERIAL BLOOD GAS CARBOXY HB 0.9 %sat (0.0-9.0); ARTERIAL BLOOD GAS HCO3 33.8 mmol/L; ARTERIAL BLOOD GAS MET HB 1.1 %sat (0.0-2.0); ARTERIAL BLOOD GAS pH 7.425 (7.350-7.450)
[2017-03-02 04:10] LABS: DIFF IND YES
[2017-03-02 04:10] LABS: ARTERIAL BLOOD GAS ALLEN TEST NORMAL; ARTERIAL BLOOD GAS ART SITE LEFT RADIAL; ARTERIAL BLOOD GAS DELIVERY OXYMIZER; ARTERIAL BLOOD GAS PCO2 51.5 mmHg (35.0-45.0); ARTERIAL BLOOD GAS PO2 69.8 mmHg (80.0-100); ARTERIAL DRAW? YES
[2017-03-02 04:25] LABS: ALBUMIN SERUM 2.9 g/dL (3.5-5.0); BILIRUBIN,TOTAL 0.6 mg/dL (0.2-2.0); BUN/CREATININE RATIO 22.85; CALCIUM SERUM 8.7 mg/dL (8.4-10.2); CREATININE SERUM 0.7 mg/dL (0.6-1.4); GLOM FILT RATE Estimated 93.5 mL/min (>60); POTASSIUM 3.3 mmol/L (3.5-5.1); PROTEIN TOTAL SERUM 7.3 g/dL (6.0-8.3)
[2017-03-02 04:29] LABS: ANISOCYTOSIS SL; HYPERSEGMENTED POLYS PRESENT; PLATELET ESTIMATE INCREASED (NORMAL); STOMATOCYTE PRESENT
[2017-03-02 10:58] LABS: HEMATOCRIT 41.7 % (35.0-45.0); HEMOGLOBIN 13.3 gm/dL (12.0-16.0); MEAN CORPUSCULAR HEMOGLOBIN 29.4 PG (28-34); MEAN CORPUSCULAR HGB CONC 31.9 g/dL (30-36); MEAN PLATELET VOLUME 7.5 FL (6.5-11.5); RED BLOOD COUNT 4.53 X10e (3.90-5.30); RED CELL DISTRIBUTION WIDTH 15.5 % (11.0-15.5); WHITE BLOOD COUNT 8.4 X10e3 (4.0-10.5)
[2017-03-02 11:19] LABS: CALCIUM SERUM 8.5 mg/dL (8.4-10.2); CREATININE SERUM 0.6 mg/dL (0.6-1.4); GLOM FILT RATE Estimated 98.4 mL/min (>60); POTASSIUM 3.2 mmol/L (3.5-5.1)
[2017-03-04 03:16] LABS: BASOPHIL% 0.4 % (0-2.5); EOSINOPHIL% 0.3 % (0.0-7.0); HEMATOCRIT 40.2 % (35.0-45.0); HEMOGLOBIN 12.7 gm/dL (12.0-16.0); LYMPHOCYTE# 1.4 X10e3 (1.0-3.5); LYMPHOCYTE% 12.7 % (17.0-45.0); MEAN CELL VOLUME 92.4 FL (83-96); MEAN CORPUSCULAR HEMOGLOBIN 29.2 PG (28-34); MEAN CORPUSCULAR HGB CONC 31.6 g/dL (30-36); MEAN PLATELET VOLUME 7.2 FL (6.5-11.5); MONOCYTE# 0.7 X10e3 (0-1.0); MONOCYTE% 5.9 % (3.0-12.0); NEUTROPHIL# 9.1 X10e3 (1.5-7.1); NEUTROPHIL% 80.7 % (40-75); PLATELET COUNT 460 X10e3 (140-420); RED BLOOD COUNT 4.35 X10e (3.90-5.30); RED CELL DISTRIBUTION WIDTH 15.3 % (11.0-15.5); WHITE BLOOD COUNT 11.3 X10e3 (4.0-10.5)
[2017-03-04 03:17] LABS: DIFF IND NO
[2017-03-04 03:39] LABS: CREATININE SERUM 0.6 mg/dL (0.6-1.4); GLOM FILT RATE Estimated 98.4 mL/min (>60); POTASSIUM 3.1 mmol/L (3.5-5.1)
[2017-03-05 03:09] LABS: HEMATOCRIT 38.3 % (35.0-45.0); HEMOGLOBIN 12.3 gm/dL (12.0-16.0); MEAN CELL VOLUME 90.4 FL (83-96); MEAN CORPUSCULAR HEMOGLOBIN 28.9 PG (28-34); MEAN PLATELET VOLUME 6.9 FL (6.5-11.5); RED BLOOD COUNT 4.24 X10e (3.90-5.30); RED CELL DISTRIBUTION WIDTH 15.1 % (11.0-15.5); WHITE BLOOD COUNT 8.4 X10e3 (4.0-10.5)
[2017-03-05 03:47] LABS: CALCIUM SERUM 8.3 mg/dL (8.4-10.2); CREATININE SERUM 0.5 mg/dL (0.6-1.4); GLOM FILT RATE Estimated 104.5 mL/min (>60); POTASSIUM 3.3 mmol/L (3.5-5.1)
[2017-03-05] MEDS ORDERED: ACETAMINOPHEN650 M4 PO (13:25)
[2017-03-05] MEDS ORDERED: METOPROLOL TART25 MG PO (13:26)
[2017-03-05] MEDS ORDERED: SEROQUEL50 M1 PO (13:26)
[2017-03-05] MEDS ORDERED: CLONIDINE PO (13:28)
[2017-03-05] MEDS ORDERED: LEVEMIR SUBQ (13:29)
[2017-03-05] MEDS ORDERED: HUMALOG100 UNIT/1 (13:31)
[2017-03-05] MEDS ORDERED: [UNRECOGNIZED DRUG - OTHER] TOP (13:33)
[2017-03-05] MEDS ORDERED: PEPCID PO (13:34)
[2017-03-05] MEDS ORDERED: HYDROCODON-ACE1 EAC7 PO (13:37)
[2017-03-05] MEDS ORDERED: PREDNISONE10 M1 (13:39)
[2017-08-10] MEDS ORDERED: NEURONTIN100 MG PO (15:50)
[2017-08-10] MEDS ORDERED: GABAPENTIN800 MG PO (15:50)
[2017-08-10] MEDS ORDERED: MIRAPEX (15:51)
[2017-08-10] MEDS ORDERED: COMBIVENT RESPIM4 GM INH (15:52)
[2017-08-10] MEDS ORDERED: ARICEPT5 M1 PO (15:52)
[2017-08-10] MEDS ORDERED: KCL PO (15:52)
[2017-08-10] MEDS ORDERED: SEROQUEL25 MG PO (15:52)
[2017-08-10] MEDS ORDERED: LEVEMIR100 UNITS/ SUBQ (15:53)
[2017-08-10] MEDS ORDERED: METFORMIN PO (15:53)
[2017-08-10] MEDS ORDERED: HUMALOG100 UNIT/1 SUBQ (15:53)
[2017-08-10] MEDS ORDERED: AMARYL2 MG PO (15:53)
== END 2017-03-05 14:35 | disposition home health service (06) | DRG 870 ==
LOC: CED 20:12 → CEDOF 22:30 → C3A PCU 02-22 00:31 → CICCU2 02-23 02:40 → C4C 03-01 15:57
PROVIDERS: Anesthesiology; Emergency Medicine; Family Medicine; Internal Medicine; Internal Medicine Pulmonary Disease; Specialist
PROC: 0JJW0ZZ Inspection of Lower Extremity Subcutaneous Tissue and Fascia, Open Approach (ICD-10-PCS; principal; 2017-02-23)
PROC: 5A1955Z Respiratory Ventilation, Greater than 96 Consecutive Hours (ICD-10-PCS; 2017-02-23)
DX: A40.1 Sepsis due to streptococcus, group B (principal); J95.822 Acute and chronic postprocedural respiratory failure; J69.0 Pneumonitis due to inhalation of food and vomit; G92 Toxic encephalopathy; L03.116 Cellulitis of left lower limb; N39.0 Urinary tract infection, site not specified; J44.1 Chronic obstructive pulmonary disease with (acute) exacerbation; E46 Unspecified protein-calorie malnutrition; T76.01XA Adult neglect or abandonment, suspected, initial encounter; Z99.81 Dependence on supplemental oxygen; E11.42 Type 2 diabetes mellitus with diabetic polyneuropathy; Z79.4 Long term (current) use of insulin; E78.5 Hyperlipidemia, unspecified; Z90.710 Acquired absence of both cervix and uterus; F17.210 Nicotine dependence, cigarettes, uncomplicated; M54.9 Dorsalgia, unspecified; G89.4 Chronic pain syndrome; E11.610 Type 2 diabetes mellitus with diabetic neuropathic arthropathy; G30.9 Alzheimer's disease, unspecified; F02.80 Dementia in other diseases classified elsewhere, unspecified severity, without behavioral disturbance, psychotic disturbance, mood disturbance, and anxiety; F39 Unspecified mood [affective] disorder; Y83.8 Other surgical procedures as the cause of abnormal reaction of the patient, or of later complication, without mention of misadventure at the time of the procedure; B95.62 Methicillin resistant Staphylococcus aureus infection as the cause of diseases classified elsewhere; Z68.34 Body mass index [BMI] 34.0-34.9, adult
CPT/HCPCS: 36415; 36600; 51701; 70450; 71010; 73630; 73701-LT; 74000; 80048; 80053; 80076; 80200; 80202; 81003; 82607; 82803; 82947; 83036; 83605; 83735; 83880; 84100; 84443; 84484; 85025; 85027; 85610; 85652; 85730; 86140; 86850; 86900; 86901; 87040; 87045; 87070; 87077; 87086; 87186; 87205; 87427; 87804; 87880; 87899; 93005; 94002; 94003; 94640; 94760; 94761; 96360; 97110; 97116; 97162; 97166; 97530; 97535; 99285; C9113; G8978-GP; G8979-GP; G8980-GP; G8987-GO; G8988-GO; J0330; J0360; J0515; J1630; J1650; J1815; J2060; J2270; J2310; J2405; J2543; J2710; J2920; J2930; J3010; J3260; J3370; J3490; Q9967

== ENCOUNTER → 2017-03-05 | Outpatient (CLI) | payer MEDICARE, BC ==
[~2017-03-05] MED LIST changes: +ACETAMINOPHEN650 M4 PO; +AMARYL2 MG PO; +CLONIDINE PO; +HUMALOG100 UNIT/1; +HUMALOG100 UNIT/1 SUBQ; +HYDROCODON-ACE1 EAC7 PO; +LEVEMIR100 UNITS/ SUBQ; +METFORMIN HCL500 M3 PO; +METFORMIN PO; +METOPROLOL TART25 MG PO; +MIRAPEX; +PEPCID PO; +PREDNISONE10 M1; +SEROQUEL25 MG PO; +SEROQUEL50 M1 PO; +SIMVASTATIN40 MG PO; +[UNRECOGNIZED DRUG - OTHER] TOP
--- NOTE | ~2017-03-05 | CO ---
Unit #: [id number] #: [id number] Patient: MIRNA WITT [id number] [address] [address] [id number] O MR#: [id number] NAME: MIRNA WITT. ROOM: Age: 61 Sex: F Admission Date: 03/05/2017 : 1955 Attending Physician: Walt Wilder M.D. Primary Care Physician: Kyle Carpenter M.D. Consultation Date: 03/05/2017 CONSULTATION REPORT REASON FOR CONSULTATION Followup. DISCUSSION Ms. Mirna Witt is a 61-year-old female seen in room 465, bed one at [facility] on 03/05/17. The patient was compliant, cooperative. The patient denied any complaints. The patient reports making progress. The patient was somewhat confused but denied any thoughts of harming self or others. The patient was unable to give any coherent history. REVIEW OF SYSTEMS A complete review of systems unremarkable. MENTAL STATUS EXAMINATION GENERAL APPEARANCE: Patient dressed casually. ATTENTION SPAN AND CONCENTRATION: Fair. MOOD AND AFFECT: Labile. SPEECH: Slow. ORIENTATION: Self and place. THOUGHT PROCESS: Circumstantial. THOUGHT CONTENT: Guarded but denied any thoughts of harming self or others. RECENT AND REMOTE MEMORY: Poor. LANGUAGE: Fair. FUND OF KNOWLEDGE: Fair. INSIGHT AND JUDGMENT: Fair to slightly impaired. DIAGNOSES 1. 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 2. Mood disorder, NOS. ASSESSMENT/PLAN 1. Supportive psychotherapy and psychoeducation provided to the patient. 2. Educated about benefits and side effects of medication and course and prognosis of illness. Continue with the current medication. The patient is currently on Seroquel 50 mg twice daily. If needed, consider further additional medication. Dictated by... Diony Patel M.D. Unit #: [id number] #: [id number] Patient: MIRNA WITT SZC/bd TD: 03/06/2017 07:45 JOB #: [id number] CONSULTATION REPORT Page 1 of 1 X Diony Patel MD CONSULTATION REPORT
== END | disposition home or self-care (01) ==
LOC: CSSDAY 14:49
DX: L03.116 Cellulitis of left lower limb (principal); E11.8 Type 2 diabetes mellitus with unspecified complications; G30.9 Alzheimer's disease, unspecified; F02.80 Dementia in other diseases classified elsewhere, unspecified severity, without behavioral disturbance, psychotic disturbance, mood disturbance, and anxiety; Z79.899 Other long term (current) drug therapy; F39 Unspecified mood [affective] disorder
CPT/HCPCS: 96365; J0875

== ENCOUNTER → 2017-04-21 | Outpatient (CLI) | payer MEDICARE, BC ==
--- NOTE | ~2017-04-21 | CT57 ---
[facility] A Service of [facility] & [facility] RADIOLOGY TEXT RESULTS PATIENT: MIRNA WITT LOCATION: [facility] : 55 UNIT #: [id number] AGE: [address]: Grace Alcantara MD SEX: F ORDER DR: [id number] [place] [id number] [facility]. [place], [place] [address] [id number] O MR#: [id number] [facility] #: [id number] NAME: MIRNA WITT. : 1955 SEX: F STUDY DATE/TIME: 04/21/2017 15:15 UNIT: [facility] ROOM: STUDY DESCRIPTION: CT Chest Wo Cont Attending Physician: Grace Alcantara M.D. Referring Physician: Grace Alcantara M.D. Ordering Physician: Grace Alcantara M.D. Primary Care Physician: Kyle Carpenter M.D. MEDICAL IMAGING REPORT This report is preliminary unless electronic signature is present EXAM CT chest without contrast HISTORY Pneumonia. Shortness of air, chronic for [address] exam was performed with one or more of the following radiation dose reduction techniques: automatic exposure control, adjustment of mA and/or kV according to patient size, and iterative reconstruction. FINDINGS CT chest without contrast demonstrates rbpw-yp-qsuzirqc emphysema bilaterally, slightly greater in the upper lobes. No airspace infiltrates. No pleural effusions. Incidental small calcified granuloma posterior right lower lobe. No adenopathy. Small calcified mediastinal and right hilar nodes. Normal caliber thoracic aorta. Images of the upper abdomen demonstrate tiny punctate calcifications in the partly visualized pancreatic head and uncinate process suggesting chronic pancreatitis. There is also a questionable small amount of sludge versus small stones in the partly visualized gallbladder. No pericardial thickening or effusion. IMPRESSION 1. No acute findings. No active disease. Wnqn-[id number]-xzbetosy bilateral emphysema. 2. Images of the upper abdomen demonstrate probable mild changes of chronic pancreatitis in the pancreatic head and uncinate process and questionable small stone or sludge in the partly visualized gallbladder. [facility] A Service of [facility] & [facility] RADIOLOGY TEXT RESULTS PATIENT: MIRNA WITT LOCATION: REPLACED BY [facility] #: [id number] : 55 UNIT #: [id number] AGE: [address]: Grace Alcantara MD SEX: F ORDER DR: Dictated by... Diogenes Smith M.D. THIS IS AN ELECTRONICALLY VERIFIED REPORT Diogenes Smith M.D. at 04/22/2017 10:39 PM DFL/pcl TD: 04/22/2017 21:06 JOB #: [id number] MEDICAL IMAGING REPORT Page 1 of 1 COPY
== END | disposition home or self-care (01) ==
LOC: CCAT 14:09
DX: J18.9 Pneumonia, unspecified organism (principal); J43.9 Emphysema, unspecified
CPT/HCPCS: 71250